=== PATIENT | female | born 1970 | race Caucasian/White ===

== ENCOUNTER 2016-12-30 11:50 | Emergency (ER) | payer BC ==
--- NOTE | 2016-12-30 12:06 | EDM.PDOC ---
ED HPI GENERAL MEDICAL PROBLEM - General Chief Complaint: Abdominal Pain Stated Complaint: ACUTE PANCREATICE ATTACK Time Seen by Provider: 12/30/16 11:58 - History of Present Illness INITIAL COMMENTS - FREE TEXT/NARRATIVE: 46 yo female presents with acute upper abdominal pain. States that she has a hx of pancreatitis and tomorrow she is going to [facility] for a ERCP and stent placement. States that pain began Saturday, admits to having beer on . Has been taking tylenol with no relief. Denies n/v/d. Pt refusing IV fluids. States that she usually just get blood work and has pain medication she takes to help. Onset Date: 12/28/16 Duration: Constant Location: Reports: Abdomen Quality: Reports: Ache, Burning, Same as Previous Episode Severity: Moderate Improves with: Reports: None Worsens with: Reports: None Associated Symptoms: Reports: No Other Symptoms Treatments YARD PILOT: Reports: Acetaminophen Left Lower Abdomen Pain Score (Numeric/FACES): 8 - Related Data Allergies Allergy/AdvReac Type Severity Reaction Status Date / Time No Known Allergies Allergy Verified 12/30/16 12:07 Home Meds: Home Meds Omeprazole 20 mg PO DAILY 12/30/16 [History] Social & Family History - Tobacco Use Smoking Status *Q: Current Every Day Smoker Years of Tobacco use: 1 Used Tobacco, but Quit: No Second Hand Smoke Exposure: No - Alcohol Use Days Per Week of Alcohol Use: 1 Number of Drinks Per Day: 2 Total Drinks Per Week: 2 - Recreational Drug Use Recreational Drug Use: No ED ROS GENERAL - Review of Systems Review Of Systems: ROS reveals no pertinent complaints other than HPI. ED EXAM, GI/ABD - Physical Exam Exam: See Below Exam Limited By: No Limitations General Appearance: Alert, WD/WN, No Apparent Distress Respiratory/Chest: No Respiratory Distress, Lungs Clear, Normal Breath Sounds, No Accessory Muscle Use, Chest Non-Tender Cardiovascular: Normal Peripheral Pulses, Regular Rate, Rhythm, No Edema, No Gallop, No JVD, No Murmur, No Rub GI/Abdominal Exam: Normal Bowel Sounds, Soft, No Organomegaly, No Distention, No Abnormal Bruit, No Mass, Tender (Epigastric area) Back Exam: Normal Inspection, Full Range of Motion, NT Neurological: Alert, Oriented Skin Exam: Warm, Dry, Intact, Normal Color, No Rash Course - Vital Signs Last Recorded V/S: Last Vital Signs Temp 97.6 F 12/30/16 12:02 Pulse 95 12/30/16 12:02 Resp 20 12/30/16 12:02 BP 176/78 H 12/30/16 12:02 Pulse Ox 95 12/30/16 12:02 - Orders/Labs/Meds Labs: Laboratory Tests 12/30/16 12/30/16 Range/Units 12:23 12:23 WBC 8.0 (5.0-10.0) 10^3/uL RBC 4.33 (4.2-5.4) 10^6/uL Hgb 14.5 (12.0-16.0) g/dL Hct 42.5 (37.0-47.0) % MCV 98.2 (80-100) fL MCH 33.5 (27.0-34.0) pg MCHC 34.1 (33.0-35.0) g/dL Plt Count 286 (150-450) 10^3/uL Neut % (Auto) 66.0 (42.2-75.2) % Lymph % (Auto) 25.8 (20.5-50.1) % [place] % (Auto) 5.0 (2-8) % Eos % (Auto) 2.8 (1.0-3.0) % Baso % (Auto) 0.4 (0.0-1.0) % Sodium 140 (135-145) mmol/L Potassium 4.7 (3.6-5.0) mmol/L Chloride 103 (101-111) mmol/L Carbon Dioxide 26.0 (21.0-31.0) mmol/L Anion Gap 15.7 BUN 9 (7-18) mg/dL Creatinine 0.8 (0.6-1.3) mg/dL Est Cr Clr Drug Dosing 79.07 mL/min Estimated GFR (MDRD) > 60 BUN/Creatinine Ratio 11.25 Glucose 108 H (74-105) mg/dL Calcium 9.4 (8.4-10.2) mg/dl Total Bilirubin 0.9 (0.2-1.0) mg/dL AST 16 (10-42) IU/L ALT 10 (10-60) IU/L Alkaline Phosphatase 47 (42-121) IU/L Total Protein 7.5 (6.7-8.2) g/dl Albumin 4.1 (3.2-5.5) g/dl Globulin 3.4 Albumin/Globulin Ratio 1.21 Amylase 126 H (28-100) U/L Lipase 123 H (22-51) U/L Meds: Medications Discontinued Medications Generic Name Dose Route Start Last Admin Trade Name Zack PRN Reason Stop Dose Admin Hydrocodone Bitart/Acetaminophen 1 tab 12/30/16 13:01 12/30/16 13:07 [place] 325-10 Mg PO 12/30/16 13:02 1 tab ONETIME ONE Administration Ondansetron HCl 4 mg 12/30/16 13:01 12/30/16 13:07 Zofran Odt PO 12/30/16 13:02 4 mg ONETIME ONE Administration - Re-Assessments/Exams Free Text/Narrative Re-Assessment/Exam: 12/30/16 13:11 Lab work reveal mild pancreatitis. Will medicate and have patient follow up in am with her PCP for her surgery. Departure - Departure Time of Disposition: 13:12 Disposition: Home, Self-Care 01 Condition: Good Clinical Impression: Pancreatitis Qualifiers: Chronicity: acute Pancreatitis type: alcohol induced Acute pancreatitis complication: no infection or necrosis Qualified Code(s): K85.20 - Alcohol induced acute pancreatitis without necrosis or infection - Discharge Information Instructions: Acute Pancreatitis Forms: ED Department Discharge Additional Instructions: Make sure you follow up to[facility] with your PCP/time study engineer for evaluation for your surgery. Take the medication as needed. Return for worsening symptoms. Care Plan Goals: hydrocodone/Tylenol 10/325 #8
[2016-12-30 12:07] VITALS: BP 176/78
[2016-12-30 12:52] LABS: CHLORIDE,CL 103 mmol/L (101-111); SODIUM,NA 140 mmol/L (135-145)
[2016-12-30] MEDS ORDERED: Acetaminophen/HYDROcodone 325-10 MG Tab PO ONE (13:01)
[2016-12-30] MEDS ORDERED: Ondansetron 4 MG Tab.DIS PO ONE (13:01)
== END 2016-12-30 13:26 | disposition home or self-care (01) ==
LOC: DL.ED 11:50
DX: K85.20 Alcohol induced acute pancreatitis without necrosis or infection (principal); F17.210 Nicotine dependence, cigarettes, uncomplicated; Z79.899 Other long term (current) drug therapy
CPT/HCPCS: 36415; 80053; 82150; 83690; 85025; 99284; A9270

== ENCOUNTER 2018-05-28 17:35 | Inpatient (IN) | payer BC ==
--- NOTE | 2018-05-28 18:14 | EDM.PDOC ---
<Gabi Johnson - Last Filed: 05/28/18 18:59> ED HPI GENERAL MEDICAL PROBLEM - General Chief Complaint: Abdominal Pain Stated Complaint: SEVER ABDOMEN PAIN Time Seen by Provider: 05/28/18 18:00 Source of Information: Reports: Patient History Limitations: Reports: No Limitations - History of Present Illness INITIAL COMMENTS - FREE TEXT/NARRATIVE: Patient is 47 year old female who presents to ER with abdominal pain for past 2 days. Patient reports that pain starts in her umbilical region and goes all the way up to her chest, back, and left armpit. Rates her pain 10/10. Describes her pain as sharp and constant. No alleviating factors. No exacerbating factors. She has taken tylenol with no help. Other symptoms include nausea, vomiting, decreased appetite, and chills. Has history of acid reflux and is currently taking prilosec. Patient has history of chronic pancreatitis and doesn't feel like this is pancreatitis. She has not had any pancreatitis episode after she had stents placed at [facility] in March 2017. Admits to alcohol use a day prior to pain starting. Tobacco use. Patient also reports of marijuana use today to help with pain. Onset: Gradual Duration: Day(s): (2) Location: Reports: Chest, Abdomen Quality: Reports: Sharp Severity: Moderate Improves with: Reports: None Worsens with: Reports: Breathing Associated Symptoms: Reports: Fever/Chills, Loss of Appetite, Nausea/Vomiting Treatments HEARING THERAPIST: Reports: Acetaminophen, Other (see below) (Prilosec) Abdominal Pain Score (Numeric/FACES): 8 - Related Data Allergies Allergy/AdvReac Type Severity Reaction Status Date / Time No Known Allergies Allergy Verified 05/28/18 18:29 Home Meds: Home Meds Omeprazole 20 mg PO DAILY 12/30/16 [History] Lipase/Protease/Amylase [Travis Saavedra 36,000 Units Capsule] 2 tab PO TID 05/28/18 [ History] Past Medical History Gastrointestinal History: Reports: GERD, Pancreatitis 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 ED ROS GENERAL - Review of Systems Review Of Systems: ROS reveals no pertinent complaints other than HPI. ED EXAM, GI/ABD - Physical Exam Exam: See Below Exam Limited By: No Limitations General Appearance: Alert, Mild Distress Eyes: Bilateral: Normal Appearance Ears: Normal External Exam Nose: Normal Inspection Throat/Mouth: Normal Inspection Head: Atraumatic Neck: Normal Inspection Respiratory/Chest: No Respiratory Distress, Lungs Clear, Normal Breath Sounds Cardiovascular: Regular Rate, Rhythm, No Edema GI/Abdominal Exam: Normal Bowel Sounds, Soft, Tender (diffuse tenderness). No: Distended, Guarding, Rigid, Rebound (Female) Exam: Deferred Rectal (Female) Exam: Deferred Back Exam: Normal Inspection Extremities: Normal Inspection Neurological: Alert, Oriented Psychiatric: Normal Affect, Normal Mood Skin Exam: Warm, Dry Course - Vital Signs Last Recorded V/S: Last Vital Signs Temp 99.9 F 05/28/18 21:50 Pulse 97 05/28/18 21:50 Resp 20 05/28/18 21:50 BP 137/65 05/28/18 21:50 Pulse Ox 92 L 05/28/18 21:50 - Orders/Labs/Meds Orders: Active Orders 24 hr Category Date Time Status EKG Documentation Completion [RC] URGENT Care 05/28/18 18:30 Active CULTURE BLOOD [BC] Stat Lab 05/28/18 18:44 Received CULTURE BLOOD [BC] Stat Lab 05/28/18 18:48 Received Lactated Ringers [Ringers, Lactated] 1,000 ml Med 05/28/18 18:45 Active IV ASDIRECTED Blood Culture x2 Reflex Set [OM.PC] Stat Oth 05/28/18 18:40 Ordered Medication Orders Bisacodyl (Dulcolax) 5 mg PO DAILY PRN PRN Reason: Constipation Docusate Sodium (Colace) 100 mg PO BID PRN PRN Reason: Constipation Fentanyl (Sublimaze) 25 mcg IVPUSH Q3H PRN PRN Reason: Abdominal Pain Heparin Sodium (Porcine) (Heparin Sodium) 5,000 units SUBCUT Q8HR LEONCIO Lactated Ringer's (Ringers, Lactated) 1,000 mls @ 125 mls/hr IV ASDIRECTED LEONCIO Last Admin: 05/28/18 19:00 Dose: 125 mls/hr Lactated Ringer's (Ringers, Lactated) 1,000 mls @ 250 mls/hr IV ASDIRECTED [facility] Nicotine (Habitrol) 21 mg TRDERM DAILY [facility] Ondansetron HCl (Zofran) 4 mg IVPUSH Q4H PRN PRN Reason: Nausea/Vomiting Pantoprazole Sodium (Protonix Iv) 40 mg IVPUSH DAILY [facility] Polyethylene Glycol (Miralax) 17 gm PO DAILY PRN PRN Reason: Constipation Promethazine HCl (Phenergan) 6.25 mg IM Q6H PRN PRN Reason: Nausea/Vomiting Senna/Docusate Sodium (Senna Plus) 1 tab PO BEDTIME PRN PRN Reason: Constipation Labs: Laboratory Tests 05/28/18 05/28/18 05/28/18 Range/Units 18:20 18:20 18:20 WBC 15.5 H (5.0-10.0) 10^3/uL RBC 4.20 (4.2-5.4) 10^6/uL Hgb 14.1 (12.0-16.0) g/dL Hct 40.1 (37.0-47.0) % MCV 95.5 (80-100) fL MCH 33.6 (27.0-34.0) pg MCHC 35.2 H (33.0-35.0) g/dL Plt Count 302 (150-450) 10^3/uL Neut % (Auto) 89.7 H (42.2-75.2) % Lymph % (Auto) 4.4 L (20.5-50.1) % [place] % (Auto) 5.7 (2-8) % Eos % (Auto) 0.1 L (1.0-3.0) % Baso % (Auto) 0.1 (0.0-1.0) % Sodium 126 L D (135-145) mmol/L Potassium 4.1 (3.6-5.0) mmol/L Chloride 90 L D (101-111) mmol/L Carbon Dioxide 20.0 L (21.0-31.0) mmol/L Anion Gap 20.1 BUN 8 (7-18) mg/dL Creatinine 0.7 (0.6-1.3) mg/dL Est Cr Clr Drug Dosing 89.40 mL/min Estimated GFR (MDRD) > 60 BUN/Creatinine Ratio 11.42 Glucose 109 H (74-105) mg/dL Lactic Acid (0.5-2.2) mmol/L Calcium 8.8 (8.4-10.2) mg/dl Magnesium 1.6 L (1.8-2.5) mg/dL Total Bilirubin 1.2 H (0.2-1.0) mg/dL AST 15 (10-42) IU/L ALT 8 L (10-60) IU/L Alkaline Phosphatase 66 (42-121) IU/L Ammonia (11-35) umol/L Troponin I < 0.02 (0.00-0.02) ng/ml Total Protein 8.0 (6.7-8.2) g/dl Albumin 4.0 (3.2-5.5) g/dl Globulin 4.0 Albumin/Globulin Ratio 1.00 Amylase 107 H (28-100) U/L Lipase 105 H (22-51) U/L Urine Color (YELLOW) Urine Appearance (CLEAR) Urine pH (5.0-9.0) Ur Specific [place] (1.005-1.030) Urine Protein (NEGATIVE) Urine Glucose (UA) (NEGATIVE) Urine Ketones (NEGATIVE) Urine Occult Blood (NEGATIVE) Urine Nitrite (NEGATIVE) Urine Bilirubin (NEGATIVE) Urine Urobilinogen (0.2-1.0) mg/dL Ur Leukocyte Esterase (NEGATIVE) Urine RBC /HPF Urine WBC (0-5/HPF) /HPF Ur Epithelial Cells /HPF Urine Bacteria (0-FEW/HPF) /HPF Urine Mucus /LPF Urinalysis Comment Urine HCG, Qual 05/28/18 05/28/18 05/28/18 Range/Units 18:44 18:44 20:12 WBC (5.0-10.0) 10^3/uL RBC (4.2-5.4) 10^6/uL Hgb (12.0-16.0) g/dL Hct (37.0-47.0) % MCV (80-100) fL MCH (27.0-34.0) pg MCHC (33.0-35.0) g/dL Plt Count (150-450) 10^3/uL Neut % (Auto) (42.2-75.2) % Lymph % (Auto) (20.5-50.1) % [place] % (Auto) (2-8) % Eos % (Auto) (1.0-3.0) % Baso % (Auto) (0.0-1.0) % Sodium (135-145) mmol/L Potassium (3.6-5.0) mmol/L Chloride (101-111) mmol/L Carbon Dioxide (21.0-31.0) mmol/L Anion Gap BUN (7-18) mg/dL Creatinine (0.6-1.3) mg/dL Est Cr Clr Drug Dosing mL/min Estimated GFR (MDRD) BUN/Creatinine Ratio Glucose (74-105) mg/dL Lactic Acid 1.0 (0.5-2.2) mmol/L Calcium (8.4-10.2) mg/dl Magnesium (1.8-2.5) mg/dL Total Bilirubin (0.2-1.0) mg/dL AST (10-42) IU/L ALT (10-60) IU/L Alkaline Phosphatase (42-121) IU/L Ammonia 17 (11-35) umol/L Troponin I (0.00-0.02) ng/ml Total Protein (6.7-8.2) g/dl Albumin (3.2-5.5) g/dl Globulin Albumin/Globulin Ratio Amylase (28-100) U/L Lipase (22-51) U/L Urine Color Yellow (YELLOW) Urine Appearance Slightly cloudy (CLEAR) Urine pH 6.0 (5.0-9.0) Ur Specific [place] >= 1.030 (1.005-1.030) Urine Protein 30 H (NEGATIVE) Urine Glucose (UA) Negative (NEGATIVE) Urine Ketones 80 H (NEGATIVE) Urine Occult Blood Moderate H (NEGATIVE) Urine Nitrite Negative (NEGATIVE) Urine Bilirubin Small H (NEGATIVE) Urine Urobilinogen 0.2 (0.2-1.0) mg/dL Ur Leukocyte Esterase Negative (NEGATIVE) Urine RBC 20-30 H /HPF Urine WBC 0-5 (0-5/HPF) /HPF Ur Epithelial Cells Moderate H /HPF Urine Bacteria Many H (0-FEW/HPF) /HPF Urine Mucus Many H /LPF Urinalysis Comment Urine HCG, Qual 05/28/18 Range/Units 20:12 WBC (5.0-10.0) 10^3/uL RBC (4.2-5.4) 10^6/uL Hgb (12.0-16.0) g/dL Hct (37.0-47.0) % MCV (80-100) fL MCH (27.0-34.0) pg MCHC (33.0-35.0) g/dL Plt Count (150-450) 10^3/uL Neut % (Auto) (42.2-75.2) % Lymph % (Auto) (20.5-50.1) % [place] % (Auto) (2-8) % Eos % (Auto) (1.0-3.0) % Baso % (Auto) (0.0-1.0) % Sodium (135-145) mmol/L Potassium (3.6-5.0) mmol/L Chloride (101-111) mmol/L Carbon Dioxide (21.0-31.0) mmol/L Anion Gap BUN (7-18) mg/dL Creatinine (0.6-1.3) mg/dL Est Cr Clr Drug Dosing mL/min Estimated GFR (MDRD) BUN/Creatinine Ratio Glucose (74-105) mg/dL Lactic Acid (0.5-2.2) mmol/L Calcium (8.4-10.2) mg/dl Magnesium (1.8-2.5) mg/dL Total Bilirubin (0.2-1.0) mg/dL AST (10-42) IU/L ALT (10-60) IU/L Alkaline Phosphatase (42-121) IU/L Ammonia (11-35) umol/L Troponin I (0.00-0.02) ng/ml Total Protein (6.7-8.2) g/dl Albumin (3.2-5.5) g/dl Globulin Albumin/Globulin Ratio Amylase (28-100) U/L Lipase (22-51) U/L Urine Color (YELLOW) Urine Appearance (CLEAR) Urine pH (5.0-9.0) Ur Specific [place] (1.005-1.030) Urine Protein (NEGATIVE) Urine Glucose (UA) (NEGATIVE) Urine Ketones (NEGATIVE) Urine Occult Blood (NEGATIVE) Urine Nitrite (NEGATIVE) Urine Bilirubin (NEGATIVE) Urine Urobilinogen (0.2-1.0) mg/dL Ur Leukocyte Esterase (NEGATIVE) Urine RBC /HPF Urine WBC (0-5/HPF) /HPF Ur Epithelial Cells /HPF Urine Bacteria (0-FEW/HPF) /HPF Urine Mucus /LPF Urinalysis Comment Urine HCG, Qual Negative Meds: Medications Generic Name Dose Route Start Last Admin Trade Name Zack PRN Reason Stop Dose Admin Bisacodyl 5 mg 05/28/18 21:50 Dulcolax PO DAILY PRN Constipation Docusate Sodium 100 mg 05/28/18 21:50 Colace PO BID PRN Constipation Fentanyl 25 mcg 05/28/18 22:00 Sublimaze IVPUSH Q3H PRN Abdominal Pain Heparin Sodium (Porcine) 5,000 units 05/28/18 22:00 Heparin Sodium SUBCUT Q8HR LEONCIO Lactated Ringer's 1,000 mls @ 125 mls/hr 05/28/18 18:45 05/28/18 19:00 Ringers, Lactated IV 125 mls/hr ASDIRECTED LEONCIO Administration Lactated Ringer's 1,000 mls @ 250 mls/hr 05/28/18 22:00 Ringers, Lactated IV ASDIRECTED LEON[facility] Nicotine 21 mg 05/28/18 22:00 Habitrol TRDERM DAILY [facility] Ondansetron HCl 4 mg 05/28/18 21:50 Zofran IVPUSH Q4H PRN Nausea/Vomiting Pantoprazole Sodium 40 mg 05/29/18 09:00 Protonix Iv IVPUSH DAILY [facility] Polyethylene Glycol 17 gm 05/28/18 21:50 Miralax PO DAILY PRN Constipation Promethazine HCl 6.25 mg 05/28/18 21:50 Phenergan IM Q6H PRN Nausea/Vomiting Senna/Docusate Sodium 1 tab 05/28/18 21:50 Senna Plus PO BEDTIME PRN Constipation Discontinued Medications Generic Name Dose Route Start Last Admin Trade Name Zack PRN Reason Stop Dose Admin Hydromorphone HCl 1 mg 05/28/18 21:13 05/28/18 21:31 Dilaudid IVPUSH 05/28/18 21:14 1 mg ONETIME ONE Administration Iopamidol 75 ml 05/28/18 21:14 Isovue-300 (61%) IVPUSH 05/28/18 21:15 ONETIME ONE Promethazine HCl 25 mg 05/28/18 18:16 05/28/18 18:51 Phenergan IM 05/28/18 18:17 25 mg ONETIME ONE Administration Departure - Departure Disposition: Admitted As Inpatient 66 Clinical Impression: Pancreatitis - Discharge Information <Cha Salas - Last Filed: 05/28/18 22:08> EKG INTERPRETATION EKG Date: 05/28/18 Time: 18:52 Rhythm: NSR Rate (Beats/Min): 79 [place]: Normal P-Wave: Present QRS: Normal ST-T: Normal QT: Normal Comparison: No Change Course - Radiology Interpretation Free Text/Narrative:: Abdomen/Plevis CT with contrast: FINDINGS: Lower thorax: Unremarkable. ABDOMEN: Liver: No suspicious lesions. Gallbladder and bile ducts: No acute or concerning findings. Pancreas: Peripancreatic edema. Punctate calcifications throughout the pancreas. Spleen: No suspicious lesions. Adrenals: Unremarkalbe. No suspicious mass. Kidneys and ureters: Unremarkable. No hydro. No suspicious lesions. Stomach and bowel: Unremarkable. No obstruction or inflammatory changes. Appendix: No evidence of appendicitis. PELVIS: Bladder: Unremarkable as visualized. Reproductive: Unremarkable as visualized. ABDOMEN and PELVIS: Intraperitoneal space: No free air. No significant fluid collection. Bones/joints: No acute fracture. No dislocation. Soft tissues: Unremarkable. Vasculature: Unremarkable. No acute findings Lymph nodes: Unremarkable. IMPRESSION: Acute on chronic pancreatitis changes. Thank you for allowing us to participate in the care of your patient. Dictated and Authenticated by: Luis Fernando Arreaga MD 05/28/2018 9:09 PM Central Time ([place] & [place]) See rad report - Re-Assessments/Exams Free Text/Narrative Re-Assessment/Exam: 05/28/18 22:06 I saw and evaluated the patient. Discussed with resident and agree with resident s findings and plan as documented in the residents note. Discussed patient with Dr. Farmer who agreed to accept the patient for inpatient admission. Departure - Departure Time of Disposition: 21:28 Condition: Fair - Discharge Information *PRESCRIPTION DRUG MONITORING PROGRAM REVIEWED*: No *COPY OF PRESCRIPTION DRUG MONITORING REPORT IN PATIENT [place]: No
[2018-05-28] MEDS ORDERED: Promethazine 25 MG/ML SDV IM ONE (18:16)
[2018-05-28] MEDS ORDERED: Lactated Ringers 1,000 ML IV SCH (18:45)
[2018-05-28 18:51] LABS: ANION GAP 20.1; CHLORIDE,CL 90 mmol/L (101-111); SODIUM,NA 126 mmol/L (135-145)
[2018-05-28] MEDS ORDERED: HYDROmorphone 1 MG/ML Syringe IVPUSH ONE (21:13)
[2018-05-28] MEDS ORDERED: Iopamidol 612 MG/ML 75 ML Bottle IVPUSH ONE (21:14)
[2018-05-28] MEDS ORDERED: Bisacodyl 5 MG Tab PO PRN (21:50)
[2018-05-28] MEDS ORDERED: Docusate Sodium 100 MG Cap PO PRN (21:50)
[2018-05-28] MEDS ORDERED: Promethazine 25 MG/ML SDV IM PRN (21:50)
[2018-05-28] MEDS ORDERED: Polyethylene Glycol 3350 Powder 17 GM Packet PO PRN (21:50)
--- NOTE | 2018-05-28 22:10 | PCM.HP ---
H&P History of Present Illness - General Date of Service: 05/28/18 Admit Problem/Dx: Admission Diagnosis/Problem Admission Diagnosis/Problem Acute pancreatitis Source of Information: Patient, Family, Provider History Limitations: Reports: No Limitations - History of Present Illness Initial Comments - Free Text/Narative: Ms. Marquez is a 47 y .o female with medical history significant for recurrent pancreatitis s/p multiple ERCPs and stent placements, tobacco use disorder, who presented to the ED with complaints of 8/10, sharp, constant abdominal pain that started on Saturday evening and has radiated to the epigastric area and left shoulder. Pain is associated with nausea with bilious emesis. She reports drinking 3 beers on Saturday night. States she smokes a pack of cigarettes daily. Started smoking marijuana but has not been smoking a lot. Denies any other illicit drug use. She reports that pain started on Saturday evening. She was able to manage to go to work but tonight, pain was so bad she had to come to the ED. She reports chills but had not checked her temperature at home. Denies abdominal trauama, scorpion bites, new medications, shortness of breath. She denies dysuria, hematuria, diarrhea, or constipation. Denies any other acute symptoms. Wants to quit smoking. 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 Social & Family History - Tobacco Use Smoking Status *Q: Current Every Day Smoker Years of Tobacco use: 30 Packs/Tins Daily: 1 - Caffeine Use Caffeine Use: Reports: Soda - Recreational Drug Use Recreational Drug Use: Yes Drug Use in Last 12 Months: Yes Recreational Drug Type: Reports: Marijuana/Hashish H&P Review of Systems - Review of Systems: Review Of Systems: ROS reveals no pertinent complaints other than HPI. Exam - Exam Exam: See Below - Vital Signs Vital Signs: Last Vital Signs Temp 99.9 F 05/28/18 21:50 Pulse 97 05/28/18 21:50 Resp 20 05/28/18 21:50 BP 137/65 05/28/18 21:50 Pulse Ox 92 L 05/28/18 21:50 Weight: 146 lb 8 oz - Exam Physical Exam Comments:: General: Alert and oriented to place, time and person, in moderate to severe distress, shivering. Head: atraumatic and normocephalic. Eyes: PERRLA, EOMI, anicteric, Ear, Nose and Throat: No gross abnormality found Neck: Supple Respiratory/Chest: CTAB, no wheezes, crackles, rales, or rhonci; Good air entry bilaterally. No increased work of breathing CVS: Tachycardic, RR, no murmur, rub, or gallop, peripheral pulses palpable. Gastrointestinal/Abd: Soft, non-distended, diffuse tenderness without guarding or rebound. Normal bowel sounds. No organomegaly. Skin: No acute rashes noted. Neuro: Grossly non-focal. No cranial nerve abnormality. Moves all extremities. Psych: Alert and oriented to place time and person. Fair insight, normal mood, congruent affect. Musculoskeletal: No abnormality noted. Ext: No edema, no ulcers, no tenderness, no size differences, - Patient Data Lab Results Last 24 hrs: Laboratory Results - last 24 hr 05/28/18 05/28/18 05/28/18 Range/Units 18:20 18:20 18:20 WBC 15.5 H (5.0-10.0) 10^3/uL RBC 4.20 (4.2-5.4) 10^6/uL Hgb 14.1 (12.0-16.0) g/dL Hct 40.1 (37.0-47.0) % MCV 95.5 (80-100) fL MCH 33.6 (27.0-34.0) pg MCHC 35.2 H (33.0-35.0) g/dL Plt Count 302 (150-450) 10^3/uL Neut % (Auto) 89.7 H (42.2-75.2) % Lymph % (Auto) 4.4 L (20.5-50.1) % [place] % (Auto) 5.7 (2-8) % Eos % (Auto) 0.1 L (1.0-3.0) % Baso % (Auto) 0.1 (0.0-1.0) % Sodium 126 L D (135-145) mmol/L Potassium 4.1 (3.6-5.0) mmol/L Chloride 90 L D (101-111) mmol/L Carbon Dioxide 20.0 L (21.0-31.0) mmol/L Anion Gap 20.1 BUN 8 (7-18) mg/dL Creatinine 0.7 (0.6-1.3) mg/dL Est Cr Clr Drug Dosing 89.40 mL/min Estimated GFR (MDRD) > 60 BUN/Creatinine Ratio 11.42 Glucose 109 H (74-105) mg/dL Lactic Acid (0.5-2.2) mmol/L Calcium 8.8 (8.4-10.2) mg/dl Magnesium 1.6 L (1.8-2.5) mg/dL Total Bilirubin 1.2 H (0.2-1.0) mg/dL AST 15 (10-42) IU/L ALT 8 L (10-60) IU/L Alkaline Phosphatase 66 (42-121) IU/L Ammonia (11-35) umol/L Troponin I < 0.02 (0.00-0.02) ng/ml Total Protein 8.0 (6.7-8.2) g/dl Albumin 4.0 (3.2-5.5) g/dl Globulin 4.0 Albumin/Globulin Ratio 1.00 Amylase 107 H (28-100) U/L Lipase 105 H (22-51) U/L Urine Color (YELLOW) Urine Appearance (CLEAR) Urine pH (5.0-9.0) Ur Specific Robson (1.005-1.030) Urine Protein (NEGATIVE) Urine Glucose (UA) (NEGATIVE) Urine Ketones (NEGATIVE) Urine Occult Blood (NEGATIVE) Urine Nitrite (NEGATIVE) Urine Bilirubin (NEGATIVE) Urine Urobilinogen (0.2-1.0) mg/dL Ur Leukocyte Esterase (NEGATIVE) Urine RBC /HPF Urine WBC (0-5/HPF) /HPF Ur Epithelial Cells /HPF Urine Bacteria (0-FEW/HPF) /HPF Urine Mucus /LPF Urinalysis Comment Urine HCG, Qual 05/28/18 05/28/18 05/28/18 Range/Units 18:44 18:44 20:12 WBC (5.0-10.0) 10^3/uL RBC (4.2-5.4) 10^6/uL Hgb (12.0-16.0) g/dL Hct (37.0-47.0) % MCV (80-100) fL MCH (27.0-34.0) pg MCHC (33.0-35.0) g/dL Plt Count (150-450) 10^3/uL Neut % (Auto) (42.2-75.2) % Lymph % (Auto) (20.5-50.1) % [place] % (Auto) (2-8) % Eos % (Auto) (1.0-3.0) % Baso % (Auto) (0.0-1.0) % Sodium (135-145) mmol/L Potassium (3.6-5.0) mmol/L Chloride (101-111) mmol/L Carbon Dioxide (21.0-31.0) mmol/L Anion Gap BUN (7-18) mg/dL Creatinine (0.6-1.3) mg/dL Est Cr Clr Drug Dosing mL/min Estimated GFR (MDRD) BUN/Creatinine Ratio Glucose (74-105) mg/dL Lactic Acid 1.0 (0.5-2.2) mmol/L Calcium (8.4-10.2) mg/dl Magnesium (1.8-2.5) mg/dL Total Bilirubin (0.2-1.0) mg/dL AST (10-42) IU/L ALT (10-60) IU/L Alkaline Phosphatase (42-121) IU/L Ammonia 17 (11-35) umol/L Troponin I (0.00-0.02) ng/ml Total Protein (6.7-8.2) g/dl Albumin (3.2-5.5) g/dl Globulin Albumin/Globulin Ratio Amylase (28-100) U/L Lipase (22-51) U/L Urine Color Yellow (YELLOW) Urine Appearance Slightly cloudy (CLEAR) Urine pH 6.0 (5.0-9.0) Ur Specific Robson >= 1.030 (1.005-1.030) Urine Protein 30 H (NEGATIVE) Urine Glucose (UA) Negative (NEGATIVE) Urine Ketones 80 H (NEGATIVE) Urine Occult Blood Moderate H (NEGATIVE) Urine Nitrite Negative (NEGATIVE) Urine Bilirubin Small H (NEGATIVE) Urine Urobilinogen 0.2 (0.2-1.0) mg/dL Ur Leukocyte Esterase Negative (NEGATIVE) Urine RBC 20-30 H /HPF Urine WBC 0-5 (0-5/HPF) /HPF Ur Epithelial Cells Moderate H /HPF Urine Bacteria Many H (0-FEW/HPF) /HPF Urine Mucus Many H /LPF Urinalysis Comment Urine HCG, Qual 05/28/18 Range/Units 20:12 WBC (5.0-10.0) 10^3/uL RBC (4.2-5.4) 10^6/uL Hgb (12.0-16.0) g/dL Hct (37.0-47.0) % MCV (80-100) fL MCH (27.0-34.0) pg MCHC (33.0-35.0) g/dL Plt Count (150-450) 10^3/uL Neut % (Auto) (42.2-75.2) % Lymph % (Auto) (20.5-50.1) % [place] % (Auto) (2-8) % Eos % (Auto) (1.0-3.0) % Baso % (Auto) (0.0-1.0) % Sodium (135-145) mmol/L Potassium (3.6-5.0) mmol/L Chloride (101-111) mmol/L Carbon Dioxide (21.0-31.0) mmol/L Anion Gap BUN (7-18) mg/dL Creatinine (0.6-1.3) mg/dL Est Cr Clr Drug Dosing mL/min Estimated GFR (MDRD) BUN/Creatinine Ratio Glucose (74-105) mg/dL Lactic Acid (0.5-2.2) mmol/L Calcium (8.4-10.2) mg/dl Magnesium (1.8-2.5) mg/dL Total Bilirubin (0.2-1.0) mg/dL AST (10-42) IU/L ALT (10-60) IU/L Alkaline Phosphatase (42-121) IU/L Ammonia (11-35) umol/L Troponin I (0.00-0.02) ng/ml Total Protein (6.7-8.2) g/dl Albumin (3.2-5.5) g/dl Globulin Albumin/Globulin Ratio Amylase (28-100) U/L Lipase (22-51) U/L Urine Color (YELLOW) Urine Appearance (CLEAR) Urine pH (5.0-9.0) Ur Specific Robson (1.005-1.030) Urine Protein (NEGATIVE) Urine Glucose (UA) (NEGATIVE) Urine Ketones (NEGATIVE) Urine Occult Blood (NEGATIVE) Urine Nitrite (NEGATIVE) Urine Bilirubin (NEGATIVE) Urine Urobilinogen (0.2-1.0) mg/dL Ur Leukocyte Esterase (NEGATIVE) Urine RBC /HPF Urine WBC (0-5/HPF) /HPF Ur Epithelial Cells /HPF Urine Bacteria (0-FEW/HPF) /HPF Urine Mucus /LPF Urinalysis Comment Urine HCG, Qual Negative Result Diagrams: 05/28/18 22:05 05/28/18 22:05 - Problem List (1) Hyponatremia SNOMED Code(s): 50830155 ICD Code: E87.1 - HYPO-OSMOLALITY AND HYPONATREMIA Status: Acute Current Visit: Yes (2) SIRS (systemic inflammatory response syndrome) SNOMED Code(s): 364111924 ICD Code: R65.10 - SIRS OF NON-INFECTIOUS ORIGIN W/O ACUTE ORGAN DYSFUNCTION Status: Acute Current Visit: Yes (3) Tobacco use disorder SNOMED Code(s): 572048920 ICD Code: F17.200 - NICOTINE DEPENDENCE, UNSPECIFIED, UNCOMPLICATED Status : Acute Current Visit: Yes (4) Alcohol abuse SNOMED Code(s): 26837528 ICD Code: F10.10 - ALCOHOL ABUSE, UNCOMPLICATED Status: Acute Current Visit: Yes (5) Marijuana abuse SNOMED Code(s): 43100219 ICD Code: F12.10 - CANNABIS ABUSE, UNCOMPLICATED Status: Acute Current Visit: Yes (6) High anion gap metabolic acidosis SNOMED Code(s): 84461990 ICD Code: E87.2 - ACIDOSIS Status: Acute Current Visit: Yes (7) Hypomagnesemia SNOMED Code(s): 083324566 ICD Code: E83.42 - HYPOMAGNESEMIA Status: Acute Current Visit: Yes (8) Pancreatitis SNOMED Code(s): 41023350 ICD Code: K85.9 - ACUTE PANCREATITIS, UNSPECIFIED * DO NOT USE * Status: Acute Current Visit: No Problem List Initiated/Reviewed/Updated: Yes Orders Last 24hrs: Active Orders 24 hr Category Date Time Status Patient Status [ADT] Routine ADT 05/28/18 21:50 Ordered Cardiac Monitoring [RC] CONTINUOUS Care 05/28/18 21:51 Ordered EKG Documentation Completion [RC] URGENT Care 05/28/18 18:30 Active Intake and Output [RC] QSHIFT Care 05/28/18 21:51 Ordered Oxygen Therapy [RC] PRN Care 05/28/18 21:50 Ordered Up ad Rosina [RC] ASDIRECTED Care 05/28/18 21:50 Ordered VTE/DVT Education [RC] PER UNIT ROUTINE Care 05/28/18 21:50 Ordered Vital Signs [RC] Q4H Care 05/28/18 21:50 Ordered Nothing per Oral Now Diet [DIET] Diet 05/28/18 Dinner Ordered BASIC METABOLIC PANEL,BMP [CHEM] DAILY Lab 05/28/18 22:00 Ordered CBC W/O DIFF,HEMOGRAM [HEME] DAILY Lab 05/28/18 22:00 Ordered CULTURE BLOOD [BC] Stat Lab 05/28/18 18:44 Received CULTURE BLOOD [BC] Stat Lab 05/28/18 18:48 Received Bisacodyl [Dulcolax] Med 05/28/18 21:50 Ordered 5 mg PO DAILY PRN Docusate Sodium [Colace] Med 05/28/18 21:50 Ordered 100 mg PO BID PRN Docusate Sodium/Sennosides [Senna Plus] Med 05/28/18 21:50 Ordered 1 tab PO BEDTIME PRN Heparin Sodium Med 05/28/18 22:00 Ordered 5,000 units SUBCUT Q8HR Lactated Ringers [Ringers, Lactated] 1,000 ml Med 05/28/18 18:45 Active IV ASDIRECTED Lactated Ringers [Ringers, Lactated] 1,000 ml Med 05/28/18 22:00 Ordered IV ASDIRECTED Nicotine [Habitrol] Med 05/28/18 22:00 Ordered 21 mg TRDERM DAILY Ondansetron [Zofran] Med 05/28/18 21:50 Ordered 4 mg IVPUSH Q4H PRN Pantoprazole [ProTONIX IV] Med 05/29/18 09:00 Ordered 40 mg IVPUSH DAILY Polyethylene Glycol 3350 [MiraLAX] Med 05/28/18 21:50 Ordered 17 gm PO DAILY PRN Promethazine [Phenergan] Med 05/28/18 21:50 Ordered 6.25 mg IM Q6H PRN fentaNYL [Sublimaze] Med 05/28/18 22:00 Ordered 25 mcg IVPUSH Q3H PRN Blood Culture x2 Reflex Set [OM.PC] Stat Oth 05/28/18 18:40 Ordered Resuscitation Status Routine Resus Stat 05/28/18 21:50 Ordered Medication Orders Bisacodyl (Dulcolax) 5 mg PO DAILY PRN PRN Reason: Constipation Docusate Sodium (Colace) 100 mg PO BID PRN PRN Reason: Constipation Fentanyl (Sublimaze) 25 mcg IVPUSH Q3H PRN PRN Reason: Abdominal Pain Heparin Sodium (Porcine) (Heparin Sodium) 5,000 units SUBCUT Q8HR [facility] Lactated Ringer's (Ringers, Lactated) 1,000 mls @ 125 mls/hr IV ASDIRECTED [facility] Last Admin: 05/28/18 19:00 Dose: 125 mls/hr Lactated Ringer's (Ringers, Lactated) 1,000 mls @ 250 mls/hr IV ASDIRECTED [facility] Nicotine (Habitrol) 21 mg TRDERM DAILY [facility] Ondansetron HCl (Zofran) 4 mg IVPUSH Q4H PRN PRN Reason: Nausea/Vomiting Pantoprazole Sodium (Protonix Iv) 40 mg IVPUSH DAILY [facility] Polyethylene Glycol (Miralax) 17 gm PO DAILY PRN PRN Reason: Constipation Promethazine HCl (Phenergan) 6.25 mg IM Q6H PRN PRN Reason: Nausea/Vomiting Senna/Docusate Sodium (Senna Plus) 1 tab PO BEDTIME PRN PRN Reason: Constipation Assessment/Plan Comment:: #Acute recurrent pancreatitis: - NPO except ice chips - Anti-emetic protocol - LR - IV fentanyl - Smoking and alcohol cessation counseling provided # Sepsis: unspecified source. UA negative. - Obtain blood cultures. - Start on broad spectrum antibiotics - IV fluids as above # Hypomagnesemia: - IV mag sulf #Hyponatremia: mild. Likely hypovolemic. - IVF as above - Serial BMP. # Tobacco use disorder: - Wants to quit - Counseling provided - Nicotine patch. #Continue other home medications that have been ordered. Code status: DNR/DNI DVT ppx: heparin GI PPx: Protonix
[2018-05-28] MEDS: Nicotine 21 MG/24 Hr Patch TRDERM SCH (22:21)
[2018-05-28] MEDS: Lactated Ringers 1,000 ML IV SCH (22:21)
[2018-05-28] MEDS: Heparin Sodium 5,000 Units/ML Vial SUBCUT SCH (22:23)
[2018-05-28 22:31] LABS: ANION GAP 20.1; CHLORIDE,CL 90 mmol/L (101-111); SODIUM,NA 125 mmol/L (135-145)
[2018-05-29] MEDS: Piperacillin/Tazobactam 3.375 GM in Sodium Chloride 0.9% 100 ML IV SCH ×5 (00:23→23:54)
[2018-05-29] MEDS: fentaNYL 100 MCG/2 ML SDV IVPUSH PRN ×8 (01:48→23:40)
[2018-05-29] MEDS: Lactated Ringers 1,000 ML IV SCH ×4 (04:50→22:03)
[2018-05-29] MEDS: Heparin Sodium 5,000 Units/ML Vial SUBCUT SCH ×3 (06:06→23:55)
[2018-05-29 07:09] LABS: ANION GAP 14.3; CHLORIDE,CL 97 mmol/L (101-111); SODIUM,NA 130 mmol/L (135-145)
[2018-05-29] MEDS: Pantoprazole 40 MG Vial IVPUSH SCH (09:14)
[2018-05-29] MEDS: Nicotine 21 MG/24 Hr Patch TRDERM SCH (09:14)
--- NOTE | 2018-05-29 16:20 | PCM.PN ---
- General Info Date of Service: 05/29/18 Admission Dx/Problem (Free Text): Admission Diagnosis/Problem Admission Diagnosis/Problem Acute pancreatitis Subjective Update: No acute events overnight. Reports that she does not have chills anymore. Reports pain is now 6/10. States dilaudid worked better. Denies recurrence of nausea/vomiting. Denies fevers, chills, chest pain, shortness of breath, or any new symptoms. - Review of Systems General: Reports: No Symptoms HEENT: Reports: No Symptoms Pulmonary: Reports: No Symptoms Cardiovascular: Reports: No Symptoms Gastrointestinal: Reports: Abdominal Pain Genitourinary: Reports: No Symptoms Musculoskeletal: Reports: No Symptoms Skin: Reports: No Symptoms Neurological: Reports: No Symptoms Psychiatric: Reports: No Symptoms - Patient Data Vitals - Most Recent: Last Vital Signs Temp 98.9 F 05/29/18 12:23 Pulse 71 05/29/18 12:23 Resp 20 05/29/18 12:23 BP 152/86 H 05/29/18 12:23 Pulse Ox 98 05/29/18 12:23 Weight - Most Recent: 146 lb 8 oz I&O - Last 24 Hours: Intake & Output 05/29/18 05/29/18 05/29/18 06:59 14:59 22:59 Intake Total 150 1311 Output Total 1600 300 Balance -1450 1011 Lab Results Last 24 Hours: Laboratory Results - last 24 hr 05/28/18 05/28/18 05/28/18 Range/Units 18:20 18:20 18:20 WBC 15.5 H (5.0-10.0) 10^3/uL RBC 4.20 (4.2-5.4) 10^6/uL Hgb 14.1 (12.0-16.0) g/dL Hct 40.1 (37.0-47.0) % MCV 95.5 (80-100) fL MCH 33.6 (27.0-34.0) pg MCHC 35.2 H (33.0-35.0) g/dL Plt Count 302 (150-450) 10^3/uL Neut % (Auto) 89.7 H (42.2-75.2) % Lymph % (Auto) 4.4 L (20.5-50.1) % [place] % (Auto) 5.7 (2-8) % Eos % (Auto) 0.1 L (1.0-3.0) % Baso % (Auto) 0.1 (0.0-1.0) % Sodium 126 L D (135-145) mmol/L Potassium 4.1 (3.6-5.0) mmol/L Chloride 90 L D (101-111) mmol/L Carbon Dioxide 20.0 L (21.0-31.0) mmol/L Anion Gap 20.1 BUN 8 (7-18) mg/dL Creatinine 0.7 (0.6-1.3) mg/dL Est Cr Clr Drug Dosing 89.40 mL/min Estimated GFR (MDRD) > 60 BUN/Creatinine Ratio 11.42 Glucose 109 H (74-105) mg/dL Lactic Acid (0.5-2.2) mmol/L Calcium 8.8 (8.4-10.2) mg/dl Magnesium 1.6 L (1.8-2.5) mg/dL Total Bilirubin 1.2 H (0.2-1.0) mg/dL AST 15 (10-42) IU/L ALT 8 L (10-60) IU/L Alkaline Phosphatase 66 (42-121) IU/L Ammonia (11-35) umol/L Troponin I < 0.02 (0.00-0.02) ng/ml Total Protein 8.0 (6.7-8.2) g/dl Albumin 4.0 (3.2-5.5) g/dl Globulin 4.0 Albumin/Globulin Ratio 1.00 Amylase 107 H (28-100) U/L Lipase 105 H (22-51) U/L Urine Color (YELLOW) Urine Appearance (CLEAR) Urine pH (5.0-9.0) Ur Specific [place] (1.005-1.030) Urine Protein (NEGATIVE) Urine Glucose (UA) (NEGATIVE) Urine Ketones (NEGATIVE) Urine Occult Blood (NEGATIVE) Urine Nitrite (NEGATIVE) Urine Bilirubin (NEGATIVE) Urine Urobilinogen (0.2-1.0) mg/dL Ur Leukocyte Esterase (NEGATIVE) Urine RBC /HPF Urine WBC (0-5/HPF) /HPF Ur Epithelial Cells /HPF Urine Bacteria (0-FEW/HPF) /HPF Urine Mucus /LPF Urinalysis Comment Urine HCG, Qual 05/28/18 05/28/1805/28/19 Range/Units 18:44 18:44 20:12 WBC (5.0-10.0) 10^3/uL RBC (4.2-5.4) 10^6/uL Hgb (12.0-16.0) g/dL Hct (37.0-47.0) % MCV (80-100) fL MCH (27.0-34.0) pg MCHC (33.0-35.0) g/dL Plt Count (150-450) 10^3/uL Neut % (Auto) (42.2-75.2) % Lymph % (Auto) (20.5-50.1) % [place] % (Auto) (2-8) % Eos % (Auto) (1.0-3.0) % Baso % (Auto) (0.0-1.0) % Sodium (135-145) mmol/L Potassium (3.6-5.0) mmol/L Chloride (101-111) mmol/L Carbon Dioxide (21.0-31.0) mmol/L Anion Gap BUN (7-18) mg/dL Creatinine (0.6-1.3) mg/dL Est Cr Clr Drug Dosing mL/min Estimated GFR (MDRD) BUN/Creatinine Ratio Glucose (74-105) mg/dL Lactic Acid 1.0 (0.5-2.2) mmol/L Calcium (8.4-10.2) mg/dl Magnesium (1.8-2.5) mg/dL Total Bilirubin (0.2-1.0) mg/dL AST (10-42) IU/L ALT (10-60) IU/L Alkaline Phosphatase (42-121) IU/L Ammonia 17 (11-35) umol/L Troponin I (0.00-0.02) ng/ml Total Protein (6.7-8.2) g/dl Albumin (3.2-5.5) g/dl Globulin Albumin/Globulin Ratio Amylase (28-100) U/L Lipase (22-51) U/L Urine Color Yellow (YELLOW) Urine Appearance Slightly cloudy (CLEAR) Urine pH 6.0 (5.0-9.0) Ur Specific [place] >= 1.030 (1.005-1.030) Urine Protein 30 H (NEGATIVE) Urine Glucose (UA) Negative (NEGATIVE) Urine Ketones 80 H (NEGATIVE) Urine Occult Blood Moderate H (NEGATIVE) Urine Nitrite Negative (NEGATIVE) Urine Bilirubin Small H (NEGATIVE) Urine Urobilinogen 0.2 (0.2-1.0) mg/dL Ur Leukocyte Esterase Negative (NEGATIVE) Urine RBC 20-30 H /HPF Urine WBC 0-5 (0-5/HPF) /HPF Ur Epithelial Cells Moderate H /HPF Urine Bacteria Many H (0-FEW/HPF) /HPF Urine Mucus Many H /LPF Urinalysis Comment Urine HCG, Qual 05/28/18 05/28/18 05/28/18 Range/Units 20:12 22:05 22:05 WBC 12.2 H (5.0-10.0) 10^3/uL RBC 3.95 L (4.2-5.4) 10^6/uL Hgb 13.1 (12.0-16.0) g/dL Hct 37.8 (37.0-47.0) % MCV 95.7 (80-100) fL MCH 33.2 (27.0-34.0) pg MCHC 34.7 (33.0-35.0) g/dL Plt Count 277 (150-450) 10^3/uL Neut % (Auto) (42.2-75.2) % Lymph % (Auto) (20.5-50.1) % [place] % (Auto) (2-8) % Eos % (Auto) (1.0-3.0) % Baso % (Auto) (0.0-1.0) % Sodium 125 L (135-145) mmol/L Potassium 4.1 (3.6-5.0) mmol/L Chloride 90 L (101-111) mmol/L Carbon Dioxide 19.0 L (21.0-31.0) mmol/L Anion Gap 20.1 BUN 8 (7-18) mg/dL Creatinine 0.7 (0.6-1.3) mg/dL Est Cr Clr Drug Dosing 89.40 mL/min Estimated GFR (MDRD) > 60 BUN/Creatinine Ratio Glucose 144 H (74-105) mg/dL Lactic Acid (0.5-2.2) mmol/L Calcium 8.7 (8.4-10.2) mg/dl Magnesium (1.8-2.5) mg/dL Total Bilirubin (0.2-1.0) mg/dL AST (10-42) IU/L ALT (10-60) IU/L Alkaline Phosphatase (42-121) IU/L Ammonia (11-35) umol/L Troponin I (0.00-0.02) ng/ml Total Protein (6.7-8.2) g/dl Albumin (3.2-5.5) g/dl Globulin Albumin/Globulin Ratio Amylase (28-100) U/L Lipase (22-51) U/L Urine Color (YELLOW) Urine Appearance (CLEAR) Urine pH (5.0-9.0) Ur Specific [place] (1.005-1.030) Urine Protein (NEGATIVE) Urine Glucose (UA) (NEGATIVE) Urine Ketones (NEGATIVE) Urine Occult Blood (NEGATIVE) Urine Nitrite (NEGATIVE) Urine Bilirubin (NEGATIVE) Urine Urobilinogen (0.2-1.0) mg/dL Ur Leukocyte Esterase (NEGATIVE) Urine RBC /HPF Urine WBC (0-5/HPF) /HPF Ur Epithelial Cells /HPF Urine Bacteria (0-FEW/HPF) /HPF Urine Mucus /LPF Urinalysis Comment Urine HCG, Qual Negative 05/29/18 Range/Units 06:22 WBC (5.0-10.0) 10^3/uL RBC (4.2-5.4) 10^6/uL Hgb (12.0-16.0) g/dL Hct (37.0-47.0) % MCV (80-100) fL MCH (27.0-34.0) pg MCHC (33.0-35.0) g/dL Plt Count (150-450) 10^3/uL Neut % (Auto) (42.2-75.2) % Lymph % (Auto) (20.5-50.1) % [place] % (Auto) (2-8) % Eos % (Auto) (1.0-3.0) % Baso % (Auto) (0.0-1.0) % Sodium 130 L (135-145) mmol/L Potassium 4.3 (3.6-5.0) mmol/L Chloride 97 L (101-111) mmol/L Carbon Dioxide 23.0 (21.0-31.0) mmol/L Anion Gap 14.3 BUN 7 (7-18) mg/dL Creatinine 0.6 (0.6-1.3) mg/dL Est Cr Clr Drug Dosing 104.30 mL/min Estimated GFR (MDRD) > 60 BUN/Creatinine Ratio Glucose 114 H (74-105) mg/dL Lactic Acid (0.5-2.2) mmol/L Calcium 8.4 (8.4-10.2) mg/dl Magnesium (1.8-2.5) mg/dL Total Bilirubin (0.2-1.0) mg/dL AST (10-42) IU/L ALT (10-60) IU/L Alkaline Phosphatase (42-121) IU/L Ammonia (11-35) umol/L Troponin I (0.00-0.02) ng/ml Total Protein (6.7-8.2) g/dl Albumin (3.2-5.5) g/dl Globulin Albumin/Globulin Ratio Amylase (28-100) U/L Lipase (22-51) U/L Urine Color (YELLOW) Urine Appearance (CLEAR) Urine pH (5.0-9.0) Ur Specific [place] (1.005-1.030) Urine Protein (NEGATIVE) Urine Glucose (UA) (NEGATIVE) Urine Ketones (NEGATIVE) Urine Occult Blood (NEGATIVE) Urine Nitrite (NEGATIVE) Urine Bilirubin (NEGATIVE) Urine Urobilinogen (0.2-1.0) mg/dL Ur Leukocyte Esterase (NEGATIVE) Urine RBC /HPF Urine WBC (0-5/HPF) /HPF Ur Epithelial Cells /HPF Urine Bacteria (0-FEW/HPF) /HPF Urine Mucus /LPF Urinalysis Comment Urine HCG, Qual [place] Results Last 24 Hours: Microbiology 05/28/18 18:48 Aerobic Blood Culture - Preliminary Blood - Venous - Lab Draw Med Orders - Current: Current Medications Bisacodyl (Dulcolax) 5 mg PO DAILY PRN PRN Reason: Constipation Docusate Sodium (Colace) 100 mg PO BID PRN PRN Reason: Constipation Fentanyl (Sublimaze) 50 mcg IVPUSH Q3H PRN PRN Reason: Pain (moderate 4-6) Last Admin: 05/29/18 13:22 Dose: 50 mcg Heparin Sodium (Porcine) (Heparin Sodium) 5,000 units SUBCUT Q8HR [facility] Last Admin: 05/29/18 13:25 Dose: 5,000 units Lactated Ringer's (Ringers, Lactated) 1,000 mls @ 250 mls/hr IV ASDIRECTED [facility] Last Admin: 05/29/18 15:46 Dose: 250 mls/hr Vancomycin HCl 1 gm/ Sodium (Chloride) 250 mls @ 166.667 mls/hr IV Q8H [facility] Last Admin: 05/29/18 09:22 Dose: 166.667 mls/hr Piperacillin Sod/Tazobactam (Sod 3.375 gm/ Sodium Chloride) 100 mls @ 200 mls/ hr IV Q6H [facility] Last Infusion: 05/29/18 13:45 Dose: Infused Nicotine (Habitrol) 21 mg TRDERM DAILY [facility] Last Admin: 05/29/18 09:14 Dose: 21 mg Ondansetron HCl (Zofran) 4 mg IVPUSH Q4H PRN PRN Reason: Nausea/Vomiting Pantoprazole Sodium (Protonix Iv) 40 mg IVPUSH DAILY [facility] Last Admin: 05/29/18 09:14 Dose: 40 mg Polyethylene Glycol (Miralax) 17 gm PO DAILY PRN PRN Reason: Constipation Promethazine HCl (Phenergan) 6.25 mg IM Q6H PRN PRN Reason: Nausea/Vomiting Senna/Docusate Sodium (Senna Plus) 1 tab PO BEDTIME PRN PRN Reason: Constipation Vancomycin HCl (Pharmacy To Dose - Vancomycin) 1 dose .XX ASDIRECTED [facility] Discontinued Medications Fentanyl (Sublimaze) 25 mcg IVPUSH Q3H PRN PRN Reason: Abdominal Pain Last Admin: 05/29/18 11:08 Dose: 25 mcg Hydromorphone HCl (Dilaudid) 1 mg IVPUSH ONETIME ONE Stop: 05/28/18 21:14 Last Admin: 05/28/18 21:31 Dose: 1 mg Lactated Ringer's (Ringers, Lactated) 1,000 mls @ 125 mls/hr IV ASDIRECTED [facility] Last Admin: 05/28/18 19:00 Dose: 125 mls/hr Piperacillin Sod/Tazobactam (Sod 3.375 gm/ Sodium Chloride) 100 mls @ 200 mls/ hr IV Q6H [facility] Last Infusion: 05/29/18 06:31 Dose: Infused Iopamidol (Isovue-300 (61%)) 75 ml IVPUSH ONETIME ONE Stop: 05/28/18 21:15 Last Admin: 05/28/18 21:15 Dose: 75 ml Promethazine HCl (Phenergan) 25 mg IM ONETIME ONE Stop: 05/28/18 18:17 Last Admin: 05/28/18 18:51 Dose: 25 mg - Exam General: Alert, Oriented, Cooperative, Moderate Distress HEENT: Pupils Equal, Pupils Reactive, Mucous Membr. Moist/[place] Neck: Supple Lungs: Clear to Auscultation, Normal Respiratory Effort Cardiovascular: Regular Rate, Regular Rhythm, No Murmurs GI/Abdominal Exam: Normal Bowel Sounds, Soft, Tender Extremities: Normal Inspection, Normal Range of Motion, Non-Tender, No Pedal Edema Peripheral Pulses: 2+: Radial (L), Radial (R), Dorsalis Pedis (L), Dorsalis Pedis (R) Skin: Warm, Dry Wound/Incisions: Healing Well Neurological: No New Focal Deficit Psy/Mental Status: Alert, Normal Affect, Normal Mood - Problem List & Annotations (1) Hyponatremia SNOMED Code(s): 31079580 Code(s): E87.1 - HYPO-OSMOLALITY AND HYPONATREMIA Status: Acute Current Visit: Yes (2) SIRS (systemic inflammatory response syndrome) SNOMED Code(s): 922534986 Code(s): R65.10 - SIRS OF NON-INFECTIOUS ORIGIN W/O ACUTE ORGAN DYSFUNCTION Status: Acute Current Visit: Yes (3) Tobacco use disorder SNOMED Code(s): 849869601 Code(s): F17.200 - NICOTINE DEPENDENCE, UNSPECIFIED, UNCOMPLICATED Status: Acute Current Visit: Yes (4) Alcohol abuse SNOMED Code(s): 51041052 Code(s): F10.10 - ALCOHOL ABUSE, UNCOMPLICATED Status: Acute Current Visit: Yes (5) Marijuana abuse SNOMED Code(s): 36379638 Code(s): F12.10 - CANNABIS ABUSE, UNCOMPLICATED Status: Acute Current Visit: Yes (6) High anion gap metabolic acidosis SNOMED Code(s): 95103078 Code(s): E87.2 - ACIDOSIS Status: Acute Current Visit: Yes (7) Hypomagnesemia SNOMED Code(s): 426476994 Code(s): E83.42 - HYPOMAGNESEMIA Status: Acute Current Visit: Yes (8) Pancreatitis SNOMED Code(s): 83023159 Code(s): K85.9 - ACUTE PANCREATITIS, UNSPECIFIED * DO NOT USE * Status: Acute Current Visit: No - Problem List Review Problem List Initiated/Reviewed/Updated: Yes - My Orders Last 24 Hours: My Active Orders 05/28/18 21:50 Patient Status [ADT] Routine Oxygen Therapy [RC] PRN Up ad Rosina [RC] ASDIRECTED VTE/DVT Education [RC] PER UNIT ROUTINE Vital Signs [RC] 04,08,12,16,20,00 Bisacodyl [Dulcolax] 5 mg PO DAILY PRN Docusate Sodium [Colace] 100 mg PO BID PRN Docusate Sodium/Sennosides [Senna Plus] 1 tab PO BEDTIME PRN Ondansetron [Zofran] 4 mg IVPUSH Q4H PRN Polyethylene Glycol 3350 [MiraLAX] 17 gm PO DAILY PRN Promethazine [Phenergan] 6.25 mg IM Q6H PRN Resuscitation Status Routine 05/28/18 21:51 Cardiac Monitoring [RC] CONTINUOUS Intake and Output [RC] QSHIFT 05/28/18 22:00 Heparin Sodium 5,000 units SUBCUT Q8HR Lactated Ringers [Ringers, Lactated] 1,000 ml IV ASDIRECTED Nicotine [Habitrol] 21 mg TRDERM DAILY 05/28/18 23:30 Pharmacy to Dose - Vancomycin 1 dose .XX ASDIRECTED 05/28/18 Dinner Nothing per Oral Now Diet [DIET] 05/29/18 01:00 Vancomycin 1 gm Sodium Chloride 0.9% [Normal Saline] 250 ml IV Q8H 05/29/18 09:00 Pantoprazole [ProTONIX IV] 40 mg IVPUSH DAILY 05/29/18 11:45 fentaNYL [Sublimaze] 50 mcg IVPUSH Q3H PRN 05/29/18 12:00 Piperacillin/Tazobactam [Zosyn] 3.375 gm Sodium Chloride 0.9% [Normal Saline] 100 ml IV Q6H 05/30/18 08:30 VANCOMYCIN TROUGH [CHEM] Timed - Plan Plan:: #Acute recurrent pancreatitis: - NPO except ice chips - Anti-emetic protocol - LR - IV fentanyl, icnreased dose to 50 mcg q3 hours - Smoking and alcohol cessation counseling provided # Sepsis: unspecified source. UA negative. - Blood cultures positive for G+ cocci in clusters. - Continue broad spectrum antibiotics - IV fluids as above # Hypomagnesemia: -Monitor and replace #Hyponatremia: mild. Likely hypovolemic. - IVF as above - Serial BMP. # Tobacco use disorder: - Wants to quit - Counseling provided - Nicotine patch. #Continue other home medications that have been ordered. Code status: DNR/DNI DVT ppx: heparin GI PPx: Protonix
[2018-05-29] MEDS: Ondansetron 4 MG/2 ML SDV IVPUSH PRN (16:36)
[2018-05-30] MEDS: fentaNYL 100 MCG/2 ML SDV IVPUSH PRN ×3 (02:28→08:39)
[2018-05-30] MEDS: Lactated Ringers 1,000 ML IV SCH ×4 (04:44→23:06)
[2018-05-30] MEDS: Heparin Sodium 5,000 Units/ML Vial SUBCUT SCH ×3 (05:41→21:13)
[2018-05-30] MEDS: Piperacillin/Tazobactam 3.375 GM in Sodium Chloride 0.9% 100 ML IV SCH ×4 (05:42→23:45)
[2018-05-30] MEDS: Pantoprazole 40 MG Vial IVPUSH SCH (08:25)
[2018-05-30] MEDS: Nicotine 21 MG/24 Hr Patch TRDERM SCH (08:25)
[2018-05-30 08:54] LABS: ANION GAP 17.6; CHLORIDE,CL 95 mmol/L (101-111); SODIUM,NA 132 mmol/L (135-145)
--- NOTE | 2018-05-30 11:33 | PCM.PN ---
- General Info Date of Service: 05/30/18 Admission Dx/Problem (Free Text): Admission Diagnosis/Problem Admission Diagnosis/Problem Acute pancreatitis Subjective Update: No acute events overnight. Reports pain is now 4/10. Denies recurrence of nausea/vomiting. Denies fevers, chills, chest pain, shortness of breath, or any new symptoms. Has been passing gas but has not had any bowel movements because she is not eating. Did not ambulate much yesterday. Functional Status: Reports: Pain Controlled Pain Score: 4 - Review of Systems General: Reports: No Symptoms HEENT: Reports: No Symptoms Pulmonary: Reports: No Symptoms Cardiovascular: Reports: No Symptoms Gastrointestinal: Reports: Abdominal Pain, [place] Genitourinary: Reports: No Symptoms Musculoskeletal: Reports: No Symptoms Skin: Reports: No Symptoms Neurological: Reports: No Symptoms Psychiatric: Reports: No Symptoms - Patient Data Vitals - Most Recent: Last Vital Signs Temp 98.1 F 05/30/18 08:00 Pulse 74 05/30/18 08:00 Resp 20 05/30/18 08:00 BP 126/74 05/30/18 08:00 Pulse Ox 97 05/30/18 08:00 Weight - Most Recent: 146 lb 8 oz I&O - Last 24 Hours: Intake & Output 05/29/18 05/30/18 05/30/18 22:59 06:59 14:59 Intake Total 1681 1442 965 Output Total 1425 650 700 Balance 256 792 265 Lab Results Last 24 Hours: Laboratory Results - last 24 hr 05/30/18 05/30/18 05/30/18 Range/Units 08:30 08:30 08:30 WBC 9.8 (5.0-10.0) 10^3/uL RBC 3.52 L (4.2-5.4) 10^6/uL Hgb 11.6 L D (12.0-16.0) g/dL Hct 34.6 L (37.0-47.0) % MCV 98.3 (80-100) fL MCH 33.0 (27.0-34.0) pg MCHC 33.5 (33.0-35.0) g/dL Plt Count 199 D (150-450) 10^3/uL Sodium 132 L (135-145) mmol/L Potassium 3.6 (3.6-5.0) mmol/L Chloride 95 L (101-111) mmol/L Carbon Dioxide 23.0 (21.0-31.0) mmol/L Anion Gap 17.6 BUN 6 L (7-18) mg/dL Creatinine 0.7 (0.6-1.3) mg/dL Est Cr Clr Drug Dosing 89.40 mL/min Estimated GFR (MDRD) > 60 Glucose 79 (74-105) mg/dL Calcium 8.1 L (8.4-10.2) mg/dl Phosphorus 3.5 (2.5-4.6) mg/dL Magnesium 1.5 L (1.8-2.5) mg/dL Vancomycin Trough 18.6 H (10-15) ug/ml [place] Results Last 24 Hours: Microbiology 05/28/18 18:48 Aerobic Blood Culture - Preliminary Blood - Venous - Lab Draw Anaerobic Blood Culture - Preliminary NO GROWTH AFTER 1 DAY 05/28/18 18:44 Aerobic Blood Culture - Preliminary Blood - Venous NO GROWTH AFTER 1 DAY Anaerobic Blood Culture - Preliminary NO GROWTH AFTER 1 DAY Med Orders - Current: Current Medications Bisacodyl (Dulcolax) 5 mg PO DAILY PRN PRN Reason: Constipation Docusate Sodium (Colace) 100 mg PO BID PRN PRN Reason: Constipation Heparin Sodium (Porcine) (Heparin Sodium) 5,000 units SUBCUT Q8HR [facility] Last Admin: 05/30/18 05:41 Dose: 5,000 units Lactated Ringer's (Ringers, Lactated) 1,000 mls @ 250 mls/hr IV ASDIRECTED [facility] Last Admin: 05/30/18 09:14 Dose: 250 mls/hr Vancomycin HCl 1 gm/ Sodium (Chloride) 250 mls @ 166.667 mls/hr IV Q8H [facility] Last Admin: 05/30/18 09:10 Dose: 166.667 mls/hr Piperacillin Sod/Tazobactam (Sod 3.375 gm/ Sodium Chloride) 100 mls @ 200 mls/ hr IV Q6H [facility] Last Infusion: 05/30/18 06:15 Dose: Infused Nicotine (Habitrol) 21 mg TRDERM DAILY [facility] Last Admin: 05/30/18 08:25 Dose: 21 mg Ondansetron HCl (Zofran) 4 mg IVPUSH Q4H PRN PRN Reason: Nausea/Vomiting Last Admin: 05/29/18 16:36 Dose: 4 mg Oxycodone HCl (Oxycodone) 5 mg PO Q6H PRN PRN Reason: Pain >4 Pantoprazole Sodium (Protonix Iv) 40 mg IVPUSH DAILY [facility] Last Admin: 05/30/18 08:25 Dose: 40 mg Polyethylene Glycol (Miralax) 17 gm PO DAILY PRN PRN Reason: Constipation Promethazine HCl (Phenergan) 6.25 mg IM Q6H PRN PRN Reason: Nausea/Vomiting Senna/Docusate Sodium (Senna Plus) 1 tab PO BEDTIME PRN PRN Reason: Constipation Vancomycin HCl (Pharmacy To Dose - Vancomycin) 1 dose .XX ASDIRECTED [facility] Discontinued Medications Fentanyl (Sublimaze) 25 mcg IVPUSH Q3H PRN PRN Reason: Abdominal Pain Last Admin: 05/29/18 11:08 Dose: 25 mcg Fentanyl (Sublimaze) 50 mcg IVPUSH Q3H PRN PRN Reason: Pain (moderate 4-6) Last Admin: 05/30/18 08:39 Dose: 50 mcg Hydromorphone HCl (Dilaudid) 1 mg IVPUSH ONETIME ONE Stop: 05/28/18 21:14 Last Admin: 05/28/18 21:31 Dose: 1 mg Lactated Ringer's (Ringers, Lactated) 1,000 mls @ 125 mls/hr IV ASDIRECTED [facility] Last Admin: 05/28/18 19:00 Dose: 125 mls/hr Piperacillin Sod/Tazobactam (Sod 3.375 gm/ Sodium Chloride) 100 mls @ 200 mls/ hr IV Q6H [facility] Last Infusion: 05/29/18 06:31 Dose: Infused Iopamidol (Isovue-300 (61%)) 75 ml IVPUSH ONETIME ONE Stop: 05/28/18 21:15 Last Admin: 05/28/18 21:15 Dose: 75 ml Promethazine HCl (Phenergan) 25 mg IM ONETIME ONE Stop: 05/28/18 18:17 Last Admin: 05/28/18 18:51 Dose: 25 mg - Exam General: Alert, Oriented, Cooperative, No Acute Distress, Mild Distress HEENT: Pupils Equal, Pupils Reactive, Mucous Membr. Moist/[place] Neck: Supple Lungs: Clear to Auscultation, Normal Respiratory Effort Cardiovascular: Regular Rate, Regular Rhythm GI/Abdominal Exam: Normal Bowel Sounds, Soft, No Distention, Tender (Mild diffuse tenderness, worse on left periumbilical region. No guarding or rebound. ) Extremities: Normal Inspection, Non-Tender, No Pedal Edema Peripheral Pulses: 2+: Radial (L), Radial (R), Dorsalis Pedis (L), Dorsalis Pedis (R) Skin: Warm, Dry, Intact Neurological: No New Focal Deficit Psy/Mental Status: Alert, Normal Affect, Normal Mood - Problem List & Annotations (1) Hyponatremia SNOMED Code(s): 11708829 Code(s): E87.1 - HYPO-OSMOLALITY AND HYPONATREMIA Status: Acute Current Visit: Yes (2) SIRS (systemic inflammatory response syndrome) SNOMED Code(s): 816660776 Code(s): R65.10 - SIRS OF NON-INFECTIOUS ORIGIN W/O ACUTE ORGAN DYSFUNCTION Status: Acute Current Visit: Yes (3) Tobacco use disorder SNOMED Code(s): 132145625 Code(s): F17.200 - NICOTINE DEPENDENCE, UNSPECIFIED, UNCOMPLICATED Status: Acute Current Visit: Yes (4) Alcohol abuse SNOMED Code(s): 07299870 Code(s): F10.10 - ALCOHOL ABUSE, UNCOMPLICATED Status: Acute Current Visit: Yes (5) Marijuana abuse SNOMED Code(s): 61898204 Code(s): F12.10 - CANNABIS ABUSE, UNCOMPLICATED Status: Acute Current Visit: Yes (6) High anion gap metabolic acidosis SNOMED Code(s): 18873502 Code(s): E87.2 - ACIDOSIS Status: Acute Current Visit: Yes (7) Hypomagnesemia SNOMED Code(s): 120531930 Code(s): E83.42 - HYPOMAGNESEMIA Status: Acute Current Visit: Yes (8) Pancreatitis SNOMED Code(s): 55637959 Code(s): K85.9 - ACUTE PANCREATITIS, UNSPECIFIED * DO NOT USE * Status: Acute Priority: High Current Visit: Yes (9) Sepsis due to Gram negative bacteria SNOMED Code(s): 200089263 Code(s): A41.50 - GRAM-NEGATIVE SEPSIS, UNSPECIFIED Status: Acute Priority: High Current Visit: Yes - Problem List Review Problem List Initiated/Reviewed/Updated: Yes - My Orders Last 24 Hours: My Active Orders 05/29/18 12:00 Piperacillin/Tazobactam [Zosyn] 3.375 gm Sodium Chloride 0.9% [Normal Saline] 100 ml IV Q6H 05/30/18 11:30 CULTURE BLOOD [BC] Stat CULTURE BLOOD [BC] Stat Blood Culture x2 Reflex Set [OM.PC] Stat 05/30/18 11:31 oxyCODONE 5 mg PO Q6H PRN 05/30/18 Lunch Clear Liquid Diet [DIET] 05/31/18 05:11 BASIC METABOLIC PANEL,BMP [CHEM] AM CBC W/O DIFF,HEMOGRAM [HEME] AM - Plan Plan:: #Acute recurrent pancreatitis: Pain is improved. patient willing to try po pain medications and try diet. She understands that if pain increases or remains constant, diet will have to be suspended until she is not requiring pain medications. Also understands that plan is to discharge with no prescription pain medications. - Clear liquid diet - Anti-emetic protocol - LR - Discontinue IV fentanyl - Start PO oxycodone 5 mg q6 hours. - Smoking and alcohol cessation counseling provided # Sepsis: unspecified source. UA negative. - Blood cultures positive for G+ cocci in clusters. - Continue broad spectrum antibiotics - IV fluids as above - Repeat blood cultures # Hypomagnesemia: -Monitor and replace #Hyponatremia: mild. Likely hypovolemic. - IVF as above - Serial BMP. # Tobacco use disorder: - Wants to quit - Counseling provided - Nicotine patch. #Continue other home medications that have been ordered. #Acute anemia + drop in platelets: likely hemodilutional. No concern for HIT at this time. - Monitor CBC. Code status: DNR/DNI DVT ppx: heparin GI PPx: Protonix
[2018-05-30] MEDS: oxyCODONE 5 MG Tab PO PRN ×2 (13:17→20:10)
[2018-05-31] MEDS: oxyCODONE 5 MG Tab PO PRN ×2 (04:16→12:20)
[2018-05-31] MEDS: Lactated Ringers 1,000 ML IV SCH ×3 (05:25→21:06)
[2018-05-31] MEDS: Piperacillin/Tazobactam 3.375 GM in Sodium Chloride 0.9% 100 ML IV SCH (05:25)
[2018-05-31] MEDS: Heparin Sodium 5,000 Units/ML Vial SUBCUT SCH ×3 (05:28→21:13)
[2018-05-31 09:00] LABS: ANION GAP 14.4
[2018-05-31] MEDS: Nicotine 21 MG/24 Hr Patch TRDERM SCH (09:15)
[2018-05-31] MEDS: Pantoprazole 40 MG Vial IVPUSH SCH (11:06)
--- NOTE | 2018-05-31 11:36 | PCM.PN ---
- General Info Date of Service: 05/31/18 Admission Dx/Problem (Free Text): Admission Diagnosis/Problem Admission Diagnosis/Problem Acute pancreatitis Subjective Update: No acute events overnight. Reports pain is now 1/10. Denies recurrence of nausea/vomiting. Denies fevers, chills, chest pain, shortness of breath, or any new symptoms. Has been passing gas but has not had any bowel movements because she is not eating. Did ambulate yesterday. - Review of Systems Systems Review Comment:: As per subjective above. - Patient Data Vitals - Most Recent: Last Vital Signs Temp 98.7 F 05/31/18 08:00 Pulse 71 05/31/18 08:00 Resp 18 05/31/18 08:00 BP 102/62 05/31/18 08:00 Pulse Ox 90 L 05/31/18 08:00 Weight - Most Recent: 146 lb 8 oz I&O - Last 24 Hours: Intake & Output 05/30/18 05/31/18 05/31/18 22:59 06:59 14:59 Intake Total 2421 1520 Output Total 600 Balance 2421 920 Lab Results Last 24 Hours: Laboratory Results - last 24 hr 05/31/18 05/31/18 05/31/18 Range/Units 08:30 08:30 08:30 WBC 7.4 (5.0-10.0) 10^3/uL RBC 3.17 L (4.2-5.4) 10^6/uL Hgb 10.5 L (12.0-16.0) g/dL Hct 30.9 L (37.0-47.0) % MCV 97.5 (80-100) fL MCH 33.1 (27.0-34.0) pg MCHC 34.0 (33.0-35.0) g/dL Plt Count 216 (150-450) 10^3/uL Sodium 135 (135-145) mmol/L Potassium 3.4 L (3.6-5.0) mmol/L Chloride 99 L (101-111) mmol/L Carbon Dioxide 25.0 (21.0-31.0) mmol/L Anion Gap 14.4 BUN 6 L (7-18) mg/dL Creatinine 1.3 (0.6-1.3) mg/dL Est Cr Clr Drug Dosing 48.14 mL/min Estimated GFR (MDRD) 44 Glucose 99 (74-105) mg/dL Calcium 7.8 L (8.4-10.2) mg/dl Phosphorus (2.5-4.6) mg/dL Magnesium 1.5 L (1.8-2.5) mg/dL Total Bilirubin (0.2-1.0) mg/dL Direct Bilirubin (0.0-0.2) mg/dL Indirect Bilirubin AST (10-42) IU/L ALT (10-60) IU/L Alkaline Phosphatase (42-121) IU/L Total Protein (6.7-8.2) g/dl Albumin (3.2-5.5) g/dl Globulin Albumin/Globulin Ratio Vancomycin Trough 29.9 H (10-15) ug/ml 05/31/18 05/31/18 Range/Units 08:30 08:30 WBC (5.0-10.0) 10^3/uL RBC (4.2-5.4) 10^6/uL Hgb (12.0-16.0) g/dL Hct (37.0-47.0) % MCV (80-100) fL MCH (27.0-34.0) pg MCHC (33.0-35.0) g/dL Plt Count (150-450) 10^3/uL Sodium (135-145) mmol/L Potassium (3.6-5.0) mmol/L Chloride (101-111) mmol/L Carbon Dioxide (21.0-31.0) mmol/L Anion Gap BUN (7-18) mg/dL Creatinine (0.6-1.3) mg/dL Est Cr Clr Drug Dosing mL/min Estimated GFR (MDRD) Glucose (74-105) mg/dL Calcium (8.4-10.2) mg/dl Phosphorus 3.6 (2.5-4.6) mg/dL Magnesium (1.8-2.5) mg/dL Total Bilirubin 0.9 (0.2-1.0) mg/dL Direct Bilirubin 0.2 (0.0-0.2) mg/dL Indirect Bilirubin 0.7 AST 33 (10-42) IU/L ALT 12 (10-60) IU/L Alkaline Phosphatase 64 (42-121) IU/L Total Protein 5.4 L (6.7-8.2) g/dl Albumin 2.4 L (3.2-5.5) g/dl Globulin 3.0 Albumin/Globulin Ratio 0.80 Vancomycin Trough (10-15) ug/ml [place] Results Last 24 Hours: Microbiology 05/28/18 18:48 Aerobic Blood Culture - Final Blood - Venous - Lab Draw Staph Hominis Ss Hominis Anaerobic Blood Culture - Preliminary NO GROWTH AFTER 2 DAYS 05/28/18 18:44 Aerobic Blood Culture - Preliminary Blood - Venous NO GROWTH AFTER 2 DAYS Anaerobic Blood Culture - Preliminary NO GROWTH AFTER 2 DAYS Med Orders - Current: Current Medications Bisacodyl (Dulcolax) 5 mg PO DAILY PRN PRN Reason: Constipation Docusate Sodium (Colace) 100 mg PO BID PRN PRN Reason: Constipation Last Admin: 05/30/18 13:17 Dose: 100 mg Heparin Sodium (Porcine) (Heparin Sodium) 5,000 units SUBCUT Q8HR COUNTS INCLUDE 234 BEDS AT THE [facility] Last Admin: 05/31/18 05:28 Dose: Not Given Vancomycin HCl 1 gm/ Sodium (Chloride) 250 mls @ 166.667 mls/hr IV BID COUNTS INCLUDE 234 BEDS AT THE [facility] Lactated Ringer's (Ringers, Lactated) 1,000 mls @ 125 mls/hr IV ASDIRECTED COUNTS INCLUDE 234 BEDS AT THE [facility] Ceftriaxone Sodium 2 gm/ (Sodium Chloride) 100 mls @ 50 mls/hr IV Q24H COUNTS INCLUDE 234 BEDS AT THE [facility] Nicotine (Habitrol) 21 mg TRDERM DAILY COUNTS INCLUDE 234 BEDS AT THE [facility] Last Admin: 05/31/18 09:15 Dose: 21 mg Ondansetron HCl (Zofran) 4 mg IVPUSH Q4H PRN PRN Reason: Nausea/Vomiting Last Admin: 05/29/18 16:36 Dose: 4 mg Oxycodone HCl (Oxycodone) 5 mg PO Q6H PRN PRN Reason: Pain >4 Last Admin: 05/31/18 04:16 Dose: 5 mg Pantoprazole Sodium (Protonix Iv) 40 mg IVPUSH DAILY COUNTS INCLUDE 234 BEDS AT THE [facility] Last Admin: 05/31/18 11:06 Dose: 40 mg Polyethylene Glycol (Miralax) 17 gm PO DAILY PRN PRN Reason: Constipation Promethazine HCl (Phenergan) 6.25 mg IM Q6H PRN PRN Reason: Nausea/Vomiting Senna/Docusate Sodium (Senna Plus) 1 tab PO BEDTIME PRN PRN Reason: Constipation Vancomycin HCl (Pharmacy To Dose - Vancomycin) 1 dose .XX ASDIRECTED COUNTS INCLUDE 234 BEDS AT THE [facility] Discontinued Medications Fentanyl (Sublimaze) 25 mcg IVPUSH Q3H PRN PRN Reason: Abdominal Pain Last Admin: 05/29/18 11:08 Dose: 25 mcg Fentanyl (Sublimaze) 50 mcg IVPUSH Q3H PRN PRN Reason: Pain (moderate 4-6) Last Admin: 05/30/18 08:39 Dose: 50 mcg Hydromorphone HCl (Dilaudid) 1 mg IVPUSH ONETIME ONE Stop: 05/28/18 21:14 Last Admin: 05/28/18 21:31 Dose: 1 mg Lactated Ringer's (Ringers, Lactated) 1,000 mls @ 125 mls/hr IV ASDIRECTED COUNTS INCLUDE 234 BEDS AT THE [facility] Last Admin: 05/28/18 19:00 Dose: 125 mls/hr Lactated Ringer's (Ringers, Lactated) 1,000 mls @ 250 mls/hr IV ASDIRECTED COUNTS INCLUDE 234 BEDS AT THE [facility] Last Admin: 05/31/18 05:25 Dose: 250 mls/hr Piperacillin Sod/Tazobactam (Sod 3.375 gm/ Sodium Chloride) 100 mls @ 200 mls/ hr IV Q6H COUNTS INCLUDE 234 BEDS AT THE [facility] Last Infusion: 05/29/18 06:31 Dose: Infused Vancomycin HCl 1 gm/ Sodium (Chloride) 250 mls @ 166.667 mls/hr IV Q8H COUNTS INCLUDE 234 BEDS AT THE [facility] Last Admin: 05/31/18 11:17 Dose: Not Given Piperacillin Sod/Tazobactam (Sod 3.375 gm/ Sodium Chloride) 100 mls @ 200 mls/ hr IV Q6H COUNTS INCLUDE 234 BEDS AT THE [facility] Last Infusion: 05/31/18 05:56 Dose: Infused Ceftriaxone Sodium 2 mg/ (Sodium Chloride) 100 mls @ 200 mls/hr IV Q24H COUNTS INCLUDE 234 BEDS AT THE [facility] Iopamidol (Isovue-300 (61%)) 75 ml IVPUSH ONETIME ONE Stop: 05/28/18 21:15 Last Admin: 05/28/18 21:15 Dose: 75 ml Promethazine HCl (Phenergan) 25 mg IM ONETIME ONE Stop: 05/28/18 18:17 Last Admin: 05/28/18 18:51 Dose: 25 mg - Exam General: Alert, Oriented, Cooperative, No Acute Distress HEENT: Pupils Equal, Mucous Membr. Moist/[place] Neck: Supple Lungs: Clear to Auscultation, Normal Respiratory Effort, Crackles Cardiovascular: Regular Rate, Regular Rhythm GI/Abdominal Exam: Normal Bowel Sounds, Soft, No Distention, Tender (Mild adelso- umbilical tenderness ) - Problem List & Annotations (1) Hyponatremia SNOMED Code(s): 82032309 Code(s): E87.1 - HYPO-OSMOLALITY AND HYPONATREMIA Status: Acute Current Visit: Yes (2) SIRS (systemic inflammatory response syndrome) SNOMED Code(s): 558890499 Code(s): R65.10 - SIRS OF NON-INFECTIOUS ORIGIN W/O ACUTE ORGAN DYSFUNCTION Status: Acute Current Visit: Yes (3) Tobacco use disorder SNOMED Code(s): 931132011 Code(s): F17.200 - NICOTINE DEPENDENCE, UNSPECIFIED, UNCOMPLICATED Status: Acute Current Visit: Yes (4) Alcohol abuse SNOMED Code(s): 35182346 Code(s): F10.10 - ALCOHOL ABUSE, UNCOMPLICATED Status: Acute Current Visit: Yes (5) Marijuana abuse SNOMED Code(s): 44266182 Code(s): F12.10 - CANNABIS ABUSE, UNCOMPLICATED Status: Acute Current Visit: Yes (6) High anion gap metabolic acidosis SNOMED Code(s): 78854416 Code(s): E87.2 - ACIDOSIS Status: Acute Current Visit: Yes (7) Hypomagnesemia SNOMED Code(s): 012058164 Code(s): E83.42 - HYPOMAGNESEMIA Status: Acute Current Visit: Yes (8) Pancreatitis SNOMED Code(s): 37124050 Code(s): K85.9 - ACUTE PANCREATITIS, UNSPECIFIED * DO NOT USE * Status: Acute Priority: High Current Visit: Yes (9) Sepsis due to Gram negative bacteria SNOMED Code(s): 026512011 Code(s): A41.50 - GRAM-NEGATIVE SEPSIS, UNSPECIFIED Status: Acute Priority: High Current Visit: Yes - Problem List Review Problem List Initiated/Reviewed/Updated: Yes - My Orders Last 24 Hours: My Active Orders 05/30/18 11:30 Blood Culture x2 Reflex Set [OM.PC] Stat 05/30/18 11:31 oxyCODONE 5 mg PO Q6H PRN 05/30/18 12:53 CULTURE BLOOD [BC] Stat 05/30/18 13:00 CULTURE BLOOD [BC] Stat 05/30/18 15:28 Blood Culture x2 Reflex Set [OM.PC] Stat 05/31/18 11:00 Lactated Ringers [Ringers, Lactated] 1,000 ml IV ASDIRECTED 05/31/18 11:30 cefTRIAXone [Rocephin] 2 gm Sodium Chloride 0.9% [Normal Saline] 100 ml IV Q24H 05/31/18 Lunch Full Liquid Diet [DIET] 06/01/18 05:11 CBC W/O DIFF,HEMOGRAM [HEME] DAILY RENAL FUNCTION PANEL,RFP [CHEM] DAILY 06/01/18 09:00 Vancomycin 1 gm Sodium Chloride 0.9% [Normal Saline] 250 ml IV BID 06/02/18 05:11 CBC W/O DIFF,HEMOGRAM [HEME] DAILY RENAL FUNCTION PANEL,RFP [CHEM] DAILY - Plan Plan:: #Acute recurrent pancreatitis: Pain is improved. patient tolerating oral medication and CLD. Wants to advance to full liquids or try toast this morning.. She understands that if pain increases or remains constant, diet will have to be suspended until she is not requiring pain medications. Also understands that plan is to discharge with no prescription pain medications. - Full liquid diet - Anti-emetic protocol - LR - Continue PO oxycodone 5 mg q6 hours. - Smoking and alcohol cessation counseling provided # Sepsis: unspecified source. UA negative. Bcx positive for Staph hominis in 1/ 2 bottles. - Start Rocephin - IV fluids as above - Repeat blood cultures pending. # Hypomagnesemia: -Monitor and replace #Hyponatremia: Resolved. Likely hypovolemic. - MOnitor BMP. # Tobacco use disorder: - Wants to quit - Counseling provided - Nicotine patch. #Continue other home medications that have been ordered. #Acute anemia + drop in platelets: likely hemodilutional. No concern for HIT at this time. - Monitor CBC. Code status: DNR/DNI DVT ppx: heparin GI PPx: Protonix
[2018-05-31] MEDS ORDERED: cefTRIAXone 2 GM in Sodium Chloride 0.9% 100 ML IV SCH ×2 (12:00→12:04)
[2018-05-31] MEDS: Ondansetron 4 MG/2 ML SDV IVPUSH PRN (22:28)
[2018-06-01] MEDS: oxyCODONE 5 MG Tab PO PRN ×2 (04:35→20:34)
[2018-06-01] MEDS: Lactated Ringers 1,000 ML IV SCH ×4 (04:36→20:34)
[2018-06-01] MEDS: Heparin Sodium 5,000 Units/ML Vial SUBCUT SCH ×4 (05:19→21:11)
[2018-06-01] MEDS ORDERED: Iopamidol 755 Mg/ML 100 ML Bottle IVPUSH ONE (05:22)
[2018-06-01 06:03] LABS: ANION GAP 15.1
[2018-06-01] MEDS ORDERED: Magnesium Sulfate/Water 2 GM in Premix Bag 1 BAG IV ONE (08:30)
--- NOTE | 2018-06-01 08:35 | PCM.PN ---
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 Reports that she got winded when she went to the bathroom. Denies abdominal pain. States the nausea recurred. Denies fevers, chills, chest pain, shortness of breath, or any new symptoms. Has been passing gas and having bowel movement. - Review of Systems Systems Review Comment:: As per subjective update. - Patient Data Vitals - Most Recent: Last Vital Signs Temp 98.8 F 06/01/18 08:00 Pulse 71 06/01/18 08:00 Resp 22 H 06/01/18 08:00 BP 163/79 H 06/01/18 08:00 Pulse Ox 93 L 06/01/18 08:00 Weight - Most Recent: 146 lb 8 oz Lab Results Last 24 Hours: Laboratory Results - last 24 hr 05/31/18 05/31/18 05/31/18 Range/Units 08:30 08:30 08:30 WBC 7.4 (5.0-10.0) 10^3/uL RBC 3.17 L (4.2-5.4) 10^6/uL Hgb 10.5 L (12.0-16.0) g/dL Hct 30.9 L (37.0-47.0) % MCV 97.5 (80-100) fL MCH 33.1 (27.0-34.0) pg MCHC 34.0 (33.0-35.0) g/dL Plt Count 216 (150-450) 10^3/uL Sodium 135 (135-145) mmol/L Potassium 3.4 L (3.6-5.0) mmol/L Chloride 99 L (101-111) mmol/L Carbon Dioxide 25.0 (21.0-31.0) mmol/L Anion Gap 14.4 BUN 6 L (7-18) mg/dL Creatinine 1.3 (0.6-1.3) mg/dL Est Cr Clr Drug Dosing 48.14 mL/min Estimated GFR (MDRD) 44 BUN/Creatinine Ratio Glucose 99 (74-105) mg/dL Calcium 7.8 L (8.4-10.2) mg/dl Phosphorus (2.5-4.6) mg/dL Magnesium 1.5 L (1.8-2.5) mg/dL Total Bilirubin (0.2-1.0) mg/dL Direct Bilirubin (0.0-0.2) mg/dL Indirect Bilirubin AST (10-42) IU/L ALT (10-60) IU/L Alkaline Phosphatase (42-121) IU/L Troponin I (0.00-0.02) ng/ml Total Protein (6.7-8.2) g/dl Albumin (3.2-5.5) g/dl Globulin Albumin/Globulin Ratio Vancomycin Trough 29.9 H (10-15) ug/ml 05/31/18 05/31/18 06/01/18 Range/Units 08:30 08:30 05:35 WBC 7.0 (5.0-10.0) 10^3/uL RBC 3.46 L (4.2-5.4) 10^6/uL Hgb 11.4 L (12.0-16.0) g/dL Hct 33.3 L (37.0-47.0) % MCV 96.2 (80-100) fL MCH 32.9 (27.0-34.0) pg MCHC 34.2 (33.0-35.0) g/dL Plt Count 191 (150-450) 10^3/uL Sodium (135-145) mmol/L Potassium (3.6-5.0) mmol/L Chloride (101-111) mmol/L Carbon Dioxide (21.0-31.0) mmol/L Anion Gap BUN (7-18) mg/dL Creatinine (0.6-1.3) mg/dL Est Cr Clr Drug Dosing mL/min Estimated GFR (MDRD) BUN/Creatinine Ratio Glucose (74-105) mg/dL Calcium (8.4-10.2) mg/dl Phosphorus 3.6 (2.5-4.6) mg/dL Magnesium (1.8-2.5) mg/dL Total Bilirubin 0.9 (0.2-1.0) mg/dL Direct Bilirubin 0.2 (0.0-0.2) mg/dL Indirect Bilirubin 0.7 AST 33 (10-42) IU/L ALT 12 (10-60) IU/L Alkaline Phosphatase 64 (42-121) IU/L Troponin I (0.00-0.02) ng/ml Total Protein 5.4 L (6.7-8.2) g/dl Albumin 2.4 L (3.2-5.5) g/dl Globulin 3.0 Albumin/Globulin Ratio 0.80 Vancomycin Trough (10-15) ug/ml 06/01/18 06/01/18 06/01/18 Range/Units 05:35 05:35 05:35 WBC (5.0-10.0) 10^3/uL RBC (4.2-5.4) 10^6/uL Hgb (12.0-16.0) g/dL Hct (37.0-47.0) % MCV (80-100) fL MCH (27.0-34.0) pg MCHC (33.0-35.0) g/dL Plt Count (150-450) 10^3/uL Sodium 136 (135-145) mmol/L Potassium 3.1 L (3.6-5.0) mmol/L Chloride 102 (101-111) mmol/L Carbon Dioxide 22.0 (21.0-31.0) mmol/L Anion Gap 15.1 BUN 6 L (7-18) mg/dL Creatinine 1.5 H (0.6-1.3) mg/dL Est Cr Clr Drug Dosing 41.72 mL/min Estimated GFR (MDRD) 37 BUN/Creatinine Ratio 4.00 Glucose 100 (74-105) mg/dL Calcium 7.9 L (8.4-10.2) mg/dl Phosphorus 4.0 (2.5-4.6) mg/dL Magnesium 1.6 L (1.8-2.5) mg/dL Total Bilirubin (0.2-1.0) mg/dL Direct Bilirubin (0.0-0.2) mg/dL Indirect Bilirubin AST (10-42) IU/L ALT (10-60) IU/L Alkaline Phosphatase (42-121) IU/L Troponin I 0.02 (0.00-0.02) ng/ml Total Protein (6.7-8.2) g/dl Albumin 2.8 L (3.2-5.5) g/dl Globulin Albumin/Globulin Ratio Vancomycin Trough (10-15) ug/ml [place] Results Last 24 Hours: Microbiology 05/28/18 18:48 Aerobic Blood Culture - Final Blood - Venous - Lab Draw Staph Hominis Ss Hominis Anaerobic Blood Culture - Preliminary NO GROWTH AFTER 3 DAYS 05/28/18 18:44 Aerobic Blood Culture - Preliminary Blood - Venous NO GROWTH AFTER 3 DAYS Anaerobic Blood Culture - Preliminary NO GROWTH AFTER 3 DAYS 05/30/18 13:00 Aerobic Blood Culture - Preliminary Blood - Venous - Lab Draw NO GROWTH AFTER 1 DAY Anaerobic Blood Culture - Preliminary NO GROWTH AFTER 1 DAY 05/30/18 12:53 Aerobic Blood Culture - Preliminary Blood - Venous NO GROWTH AFTER 1 DAY Anaerobic Blood Culture - Preliminary NO GROWTH AFTER 1 DAY Med Orders - Current: Current Medications Bisacodyl (Dulcolax) 5 mg PO DAILY PRN PRN Reason: Constipation Docusate Sodium (Colace) 100 mg PO BID PRN PRN Reason: Constipation Last Admin: 05/30/18 13:17 Dose: 100 mg Heparin Sodium (Porcine) (Heparin Sodium) 5,000 units SUBCUT Q8HR [facility] Last Admin: 06/01/18 05:19 Dose: Not Given Lactated Ringer's (Ringers, Lactated) 1,000 mls @ 250 mls/hr IV ASDIRECTED [facility] Last Admin: 06/01/18 04:36 Dose: 125 mls/hr Magnesium Sulfate 2 gm/ Premix 50 mls @ 25 mls/hr IV ONETIME ONE Stop: 06/01/18 10:29 Potassium Chloride 10 meq/ (Premix) 100 mls @ 100 mls/hr IV Q1H [facility] Stop: 06/01/18 12:29 Nicotine (Habitrol) 21 mg TRDERM DAILY [facility] Last Admin: 05/31/18 09:15 Dose: 21 mg Patients Own ( Pancrelipase/Creon 2 Tab) 2 tab PO TIDMEALS [facility] Ondansetron HCl (Zofran) 4 mg IVPUSH Q4H PRN PRN Reason: Nausea/Vomiting Last Admin: 05/31/18 22:28 Dose: 4 mg Oxycodone HCl (Oxycodone) 5 mg PO Q6H PRN PRN Reason: Pain >4 Last Admin: 06/01/18 04:35 Dose: 5 mg Pantoprazole Sodium (Protonix Iv) 40 mg IVPUSH DAILY [facility] Last Admin: 05/31/18 11:06 Dose: 40 mg Polyethylene Glycol (Miralax) 17 gm PO DAILY PRN PRN Reason: Constipation Promethazine HCl (Phenergan) 6.25 mg IM Q6H PRN PRN Reason: Nausea/Vomiting Senna/Docusate Sodium (Senna Plus) 1 tab PO BEDTIME PRN PRN Reason: Constipation Discontinued Medications Fentanyl (Sublimaze) 25 mcg IVPUSH Q3H PRN PRN Reason: Abdominal Pain Last Admin: 05/29/18 11:08 Dose: 25 mcg Fentanyl (Sublimaze) 50 mcg IVPUSH Q3H PRN PRN Reason: Pain (moderate 4-6) Last Admin: 05/30/18 08:39 Dose: 50 mcg Hydromorphone HCl (Dilaudid) 1 mg IVPUSH ONETIME ONE Stop: 05/28/18 21:14 Last Admin: 05/28/18 21:31 Dose: 1 mg Lactated Ringer's (Ringers, Lactated) 1,000 mls @ 125 mls/hr IV ASDIRECTED [facility] Last Admin: 05/28/18 19:00 Dose: 125 mls/hr Lactated Ringer's (Ringers, Lactated) 1,000 mls @ 250 mls/hr IV ASDIRECTED [facility] Last Admin: 05/31/18 05:25 Dose: 250 mls/hr Piperacillin Sod/Tazobactam (Sod 3.375 gm/ Sodium Chloride) 100 mls @ 200 mls/ hr IV Q6H [facility] Last Infusion: 05/29/18 06:31 Dose: Infused Vancomycin HCl 1 gm/ Sodium (Chloride) 250 mls @ 166.667 mls/hr IV Q8H [facility] Last Admin: 05/31/18 11:17 Dose: Not Given Piperacillin Sod/Tazobactam (Sod 3.375 gm/ Sodium Chloride) 100 mls @ 200 mls/ hr IV Q6H [facility] Last Infusion: 05/31/18 05:56 Dose: Infused Ceftriaxone Sodium 2 mg/ (Sodium Chloride) 100 mls @ 200 mls/hr IV Q24H [facility] Last Admin: 05/31/18 11:50 Dose: Not Given Vancomycin HCl 1 gm/ Sodium (Chloride) 250 mls @ 166.667 mls/hr IV BID [facility] Ceftriaxone Sodium 2 gm/ (Sodium Chloride) 100 mls @ 200 mls/hr IV Q24H [facility] Last Admin: 05/31/18 12:13 Dose: Not Given Ceftriaxone Sodium 2 gm/ (Sodium Chloride) 100 mls @ 200 mls/hr IV Q24H [facility] [place] Last Admin: 05/31/18 12:19 Dose: 200 mls/hr Iopamidol (Isovue-300 (61%)) 75 ml IVPUSH ONETIME ONE Stop: 05/28/18 21:15 Last Admin: 05/28/18 21:15 Dose: 75 ml Iopamidol (Isovue-370 (76%)) 100 ml IVPUSH ONETIME ONE Stop: 06/01/18 05:23 Last Admin: 06/01/18 06:00 Dose: 100 ml Promethazine HCl (Phenergan) 25 mg IM ONETIME ONE Stop: 05/28/18 18:17 Last Admin: 05/28/18 18:51 Dose: 25 mg Vancomycin HCl (Pharmacy To Dose - Vancomycin) 1 dose .XX ASDIRECTED [facility] - Exam General: Alert, Oriented HEENT: Pupils Equal, EOMI, Mucous Membr. Moist/[place] Lungs: Clear to Auscultation, Normal Respiratory Effort Cardiovascular: Regular Rate, Regular Rhythm GI/Abdominal Exam: Normal Bowel Sounds, Soft, Non-Tender, No Organomegaly, No Distention Extremities: Normal Inspection, Normal Range of Motion, No Pedal Edema Peripheral Pulses: 2+: Radial (L), Radial (R), Dorsalis Pedis (L), Dorsalis Pedis (R) Skin: Warm, Dry, Intact Neurological: No New Focal Deficit Psy/Mental Status: Alert, Normal Affect, Normal Mood EKG INTERPRETATION Rhythm: NSR [place]: Normal P-Wave: Present QRS: Normal ST-T: Normal QT: Prolonged - Problem List & Annotations (1) Hyponatremia SNOMED Code(s): 74063767 Code(s): E87.1 - HYPO-OSMOLALITY AND HYPONATREMIA Status: Acute Current Visit: Yes (2) SIRS (systemic inflammatory response syndrome) SNOMED Code(s): 434299777 Code(s): R65.10 - SIRS OF NON-INFECTIOUS ORIGIN W/O ACUTE ORGAN DYSFUNCTION Status: Acute Current Visit: Yes (3) Tobacco use disorder SNOMED Code(s): 064394114 Code(s): F17.200 - NICOTINE DEPENDENCE, UNSPECIFIED, UNCOMPLICATED Status: Acute Current Visit: Yes (4) Alcohol abuse SNOMED Code(s): 33729823 Code(s): F10.10 - ALCOHOL ABUSE, UNCOMPLICATED Status: Acute Current Visit: Yes (5) Marijuana abuse SNOMED Code(s): 27479932 Code(s): F12.10 - CANNABIS ABUSE, UNCOMPLICATED Status: Acute Current Visit: Yes (6) High anion gap metabolic acidosis SNOMED Code(s): 26870022 Code(s): E87.2 - ACIDOSIS Status: Acute Current Visit: Yes (7) Hypomagnesemia SNOMED Code(s): 059735921 Code(s): E83.42 - HYPOMAGNESEMIA Status: Acute Current Visit: Yes (8) Pancreatitis SNOMED Code(s): 01469845 Code(s): K85.9 - ACUTE PANCREATITIS, UNSPECIFIED * DO NOT USE * Status: Acute Priority: High Current Visit: Yes (9) Sepsis due to Gram negative bacteria SNOMED Code(s): 508321947 Code(s): A41.50 - GRAM-NEGATIVE SEPSIS, UNSPECIFIED Status: Acute Priority: High Current Visit: Yes - Problem List Review Problem List Initiated/Reviewed/Updated: Yes - My Orders Last 24 Hours: My Active Orders 05/31/18 11:00 Lactated Ringers [Ringers, Lactated] 1,000 ml IV ASDIRECTED 05/31/18 Lunch Full Liquid Diet [DIET] 06/01/18 06:55 EKG 12 Lead [EKG Documentation Completion] [RC] STAT 06/01/18 08:00 Pancrelipase/Creon 2 tab PO TIDMEALS 06/01/18 08:30 Magnesium Sulfate/Water [Magnesium Sulfate 2 GM in Water 50 ML] 2 gm Premix Bag 1 bag IV ONETIME Potassium Chloride [KCl 10 MEQ in Water 100 ML] 10 meq Premix Bag 1 bag IV Q1H 06/01/18 08:34 Incentive Spirometry [RT Incentive Spirometry] [RC] ASDIRECTED 06/02/18 05:11 CBC W/O DIFF,HEMOGRAM [HEME] DAILY RENAL FUNCTION PANEL,RFP [CHEM] DAILY - Plan Plan:: #Acute hypoxia: patient with O2 saturation in the mid-upper 80s on room air. Improved to 90s with 2L of O2 via NC. - Physical exam benign. - CT Chest, abdomen, and pelvis with no PE or infiltrate. - Now saturating well on room air. - Incentive spirometer ordered. - Encouraged to ambulate. #Acute recurrent pancreatitis: Pain is improved. but patient was nauseous with food overnight. CT abdomen shows pancreatitis is persistent. - NPO for now but can advance to clears when patient is ready. - Anti-emetic protocol - LR - Continue PO oxycodone 5 mg q6 hours. - Smoking and alcohol cessation counseling provided # Sepsis: unspecified source. UA negative. Bcx positive for Staph hominis in 1/ 2 bottles which is likely a contaminant. - Discontinue Rocephin - IV fluids as above - Repeat blood cultures negative to date. # Hypomagnesemia: -Monitor and replace #Hyponatremia: Resolved. Likely hypovolemic. - MOnitor BMP. # Tobacco use disorder: - Wants to quit - Counseling provided - Nicotine patch. #Continue other home medications that have been ordered. #Acute anemia + drop in platelets: likely hemodilutional. No concern for HIT at this time. - Monitor CBC. Code status: DNR/DNI DVT ppx: heparin GI PPx: Protonix
[2018-06-01] MEDS: Ondansetron 4 MG/2 ML SDV IVPUSH PRN (08:59)
[2018-06-01] MEDS: Pantoprazole 40 MG Vial IVPUSH SCH (09:01)
[2018-06-01] MEDS: CREON PO SCH ×3 (09:11→17:28)
[2018-06-01] MEDS: Nicotine 21 MG/24 Hr Patch TRDERM SCH (09:11)
[2018-06-01] MEDS: PANCRELIPASE PO SCH ×3 (09:11→17:28)
[2018-06-01] MEDS: Potassium Chloride 10 MEQ in Premix Bag 1 BAG IV SCH ×4 (10:52→14:04)
[2018-06-02] MEDS: Lactated Ringers 1,000 ML IV SCH (00:39)
[2018-06-02] MEDS: oxyCODONE 5 MG Tab PO PRN (02:18)
[2018-06-02] MEDS ORDERED: Lactated Ringers 1,000 ML IV SCH (02:24)
[2018-06-02] MEDS ORDERED: Acetaminophen 325 MG Tab PO PRN (02:27)
[2018-06-02] MEDS ORDERED: Furosemide 20 MG/2 ML VIAL IVPUSH ONE (03:25)
[2018-06-02] MEDS: Heparin Sodium 5,000 Units/ML Vial SUBCUT SCH ×4 (06:15→22:14)
[2018-06-02 07:02] LABS: ANION GAP 16.1
[2018-06-02] MEDS: Nicotine 21 MG/24 Hr Patch TRDERM SCH (08:20)
[2018-06-02] MEDS: Pantoprazole 40 MG Vial IVPUSH SCH (08:24)
[2018-06-02] MEDS: CREON PO SCH ×3 (10:15→17:38)
[2018-06-02] MEDS: PANCRELIPASE PO SCH ×3 (10:15→17:38)
[2018-06-02] MEDS ORDERED: Furosemide 40 MG/4 ML VIAL IVPUSH ONE (10:49)
--- NOTE | 2018-06-02 10:56 | PCM.PN ---
- General Info Date of Service: 06/02/18 Admission Dx/Problem (Free Text): Admission Diagnosis/Problem Admission Diagnosis/Problem Acute pancreatitis Subjective Update: Patient found to be hypoxic during 2 am vitals. O2 saturation in the mid- 80s.Reports abdominal fullness and generalized swelling. States her pain is 1/ 10. States the nausea not recurred. Denies fevers, chills, chest pain, shortness of breath, or any new symptoms. Has been passing gas and having bowel movement. - Review of Systems Systems Review Comment:: As per subjective update above. - Patient Data Vitals - Most Recent: Last Vital Signs Temp 98.9 F 06/02/18 08:00 Pulse 87 06/02/18 08:00 Resp 22 H 06/02/18 08:00 BP 139/102 H 06/02/18 08:00 Pulse Ox 93 L 06/02/18 09:51 Weight - Most Recent: 168 lb 9.6 oz I&O - Last 24 Hours: Intake & Output 06/01/18 06/02/18 06/02/18 22:59 06:59 14:59 Intake Total 3150 583 Output Total 500 Balance 3150 -500 583 Lab Results Last 24 Hours: Laboratory Results - last 24 hr 06/02/18 06/02/18 Range/Units 06:25 06:25 WBC 9.5 (5.0-10.0) 10^3/uL RBC 3.54 L (4.2-5.4) 10^6/uL Hgb 11.6 L (12.0-16.0) g/dL Hct 34.4 L (37.0-47.0) % MCV 97.2 (80-100) fL MCH 32.8 (27.0-34.0) pg MCHC 33.7 (33.0-35.0) g/dL Plt Count 192 (150-450) 10^3/uL Sodium 137 (135-145) mmol/L Potassium 3.1 L (3.6-5.0) mmol/L Chloride 100 L (101-111) mmol/L Carbon Dioxide 24.0 (21.0-31.0) mmol/L Anion Gap 16.1 BUN 5 L (7-18) mg/dL Creatinine 1.7 H (0.6-1.3) mg/dL Est Cr Clr Drug Dosing 36.81 mL/min Estimated GFR (MDRD) 32 BUN/Creatinine Ratio 2.94 Glucose 91 (74-105) mg/dL Calcium 8.3 L (8.4-10.2) mg/dl Phosphorus 4.3 (2.5-4.6) mg/dL Albumin 2.9 L (3.2-5.5) g/dl [place] Results Last 24 Hours: Microbiology 05/28/18 18:48 Aerobic Blood Culture - Final Blood - Venous - Lab Draw Staph Hominis Ss Hominis Anaerobic Blood Culture - Preliminary NO GROWTH AFTER 4 DAYS 05/28/18 18:44 Aerobic Blood Culture - Preliminary Blood - Venous NO GROWTH AFTER 4 DAYS Anaerobic Blood Culture - Preliminary NO GROWTH AFTER 4 DAYS 05/30/18 13:00 Aerobic Blood Culture - Preliminary Blood - Venous - Lab Draw NO GROWTH AFTER 2 DAYS Anaerobic Blood Culture - Preliminary NO GROWTH AFTER 2 DAYS 05/30/18 12:53 Aerobic Blood Culture - Preliminary Blood - Venous NO GROWTH AFTER 2 DAYS Anaerobic Blood Culture - Preliminary NO GROWTH AFTER 2 DAYS Med Orders - Current: Current Medications Acetaminophen (Tylenol) 650 mg PO Q6H PRN PRN Reason: Pain Bisacodyl (Dulcolax) 5 mg PO DAILY PRN PRN Reason: Constipation Docusate Sodium (Colace) 100 mg PO BID PRN PRN Reason: Constipation Last Admin: 05/30/18 13:17 Dose: 100 mg Furosemide (Lasix) 20 mg IVPUSH NOW ONE Stop: 06/02/18 10:50 Heparin Sodium (Porcine) (Heparin Sodium) 5,000 units SUBCUT Q8HR [facility] Last Admin: 06/02/18 06:40 Dose: 5,000 units Sodium Chloride (Normal Saline) 1,000 mls @ 10 mls/hr IV ASDIRECTED [facility] Stop: 06/06/18 10:54 Nicotine (Habitrol) 21 mg TRDERM DAILY [facility] Last Admin: 06/02/18 08:20 Dose: 21 mg Patients Own ( Pancrelipase/Creon 2 Tab) 2 tab PO TIDMEALS [facility] Last Admin: 06/02/18 10:15 Dose: Not Given Ondansetron HCl (Zofran) 4 mg IVPUSH Q4H PRN PRN Reason: Nausea/Vomiting Last Admin: 06/01/18 08:59 Dose: 4 mg Oxycodone HCl (Oxycodone) 5 mg PO Q6H PRN PRN Reason: Pain >4 Last Admin: 06/02/18 02:18 Dose: 5 mg Pantoprazole Sodium (Protonix Iv) 40 mg IVPUSH DAILY [facility] Last Admin: 06/02/18 08:24 Dose: 40 mg Polyethylene Glycol (Miralax) 17 gm PO DAILY PRN PRN Reason: Constipation Promethazine HCl (Phenergan) 6.25 mg IM Q6H PRN PRN Reason: Nausea/Vomiting Senna/Docusate Sodium (Senna Plus) 1 tab PO BEDTIME PRN PRN Reason: Constipation Discontinued Medications Fentanyl (Sublimaze) 25 mcg IVPUSH Q3H PRN PRN Reason: Abdominal Pain Last Admin: 05/29/18 11:08 Dose: 25 mcg Fentanyl (Sublimaze) 50 mcg IVPUSH Q3H PRN PRN Reason: Pain (moderate 4-6) Last Admin: 05/30/18 08:39 Dose: 50 mcg Furosemide (Lasix) 20 mg IVPUSH NOW ONE Stop: 06/02/18 03:26 Last Admin: 06/02/18 03:36 Dose: 20 mg Hydromorphone HCl (Dilaudid) 1 mg IVPUSH ONETIME ONE Stop: 05/28/18 21:14 Last Admin: 05/28/18 21:31 Dose: 1 mg Lactated Ringer's (Ringers, Lactated) 1,000 mls @ 125 mls/hr IV ASDIRECTED [facility] Last Admin: 05/28/18 19:00 Dose: 125 mls/hr Lactated Ringer's (Ringers, Lactated) 1,000 mls @ 250 mls/hr IV ASDIRECTED [facility] Last Infusion: 06/01/18 16:25 Dose: Infused Piperacillin Sod/Tazobactam (Sod 3.375 gm/ Sodium Chloride) 100 mls @ 200 mls/ hr IV Q6H [facility] Last Infusion: 05/29/18 06:31 Dose: Infused Vancomycin HCl 1 gm/ Sodium (Chloride) 250 mls @ 166.667 mls/hr IV Q8H [facility] Last Admin: 05/31/18 11:17 Dose: Not Given Piperacillin Sod/Tazobactam (Sod 3.375 gm/ Sodium Chloride) 100 mls @ 200 mls/ hr IV Q6H [facility] Last Infusion: 05/31/18 05:56 Dose: Infused Ceftriaxone Sodium 2 mg/ (Sodium Chloride) 100 mls @ 200 mls/hr IV Q24H [facility] Last Admin: 05/31/18 11:50 Dose: Not Given Vancomycin HCl 1 gm/ Sodium (Chloride) 250 mls @ 166.667 mls/hr IV BID [facility] Lactated Ringer's (Ringers, Lactated) 1,000 mls @ 250 mls/hr IV ASDIRECTED [facility] Last Infusion: 06/02/18 02:42 Dose: 100 mls/hr Ceftriaxone Sodium 2 gm/ (Sodium Chloride) 100 mls @ 200 mls/hr IV Q24H [facility] Last Admin: 05/31/18 12:13 Dose: Not Given Ceftriaxone Sodium 2 gm/ (Sodium Chloride) 100 mls @ 200 mls/hr IV Q24H [facility] Last Admin: 05/31/18 12:19 Dose: 200 mls/hr Magnesium Sulfate 2 gm/ Premix 50 mls @ 25 mls/hr IV ONETIME ONE Stop: 06/01/18 10:29 Last Infusion: 06/01/18 11:25 Dose: Infused Potassium Chloride 10 meq/ (Premix) 100 mls @ 100 mls/hr IV Q1H [facility] Stop: 06/01/18 12:29 Last Infusion: 06/01/18 15:30 Dose: Infused Lactated Ringer's (Ringers, Lactated) 1,000 mls @ 100 mls/hr IV ASDIRECTED [facility] Iopamidol (Isovue-300 (61%)) 75 ml IVPUSH ONETIME ONE Stop: 05/28/18 21:15 Last Admin: 05/28/18 21:15 Dose: 75 ml Iopamidol (Isovue-370 (76%)) 100 ml IVPUSH ONETIME ONE Stop: 06/01/18 05:23 Last Admin: 06/01/18 06:00 Dose: 100 ml Promethazine HCl (Phenergan) 25 mg IM ONETIME ONE Stop: 05/28/18 18:17 Last Admin: 05/28/18 18:51 Dose: 25 mg Vancomycin HCl (Pharmacy To Dose - Vancomycin) 1 dose .XX ASDIRECTED [facility] - Exam General: Alert, Oriented HEENT: Pupils Equal, EOMI, Mucous Membr. Moist/[place] Neck: Supple Lungs: Crackles (Faint crackles in bilateral lower lung no. ) Cardiovascular: Regular Rate, Regular Rhythm, No Murmurs GI/Abdominal Exam: Normal Bowel Sounds, Soft, Distended (Mildly distended compared to time of presentation. ), Tender (Mild tenderness to palpation. ) Extremities: Normal Inspection, Normal Range of Motion, Non-Tender, No Pedal Edema, Other (Improved skin turgor compared to presentation. ) Peripheral Pulses: 2+: Radial (L), Radial (R), Dorsalis Pedis (L), Dorsalis Pedis (R) Skin: Warm, Dry, Intact Neurological: No New Focal Deficit Psy/Mental Status: Alert, Normal Affect, Normal Mood - Problem List & Annotations (1) Hyponatremia SNOMED Code(s): 81903595 Code(s): E87.1 - HYPO-OSMOLALITY AND HYPONATREMIA Status: Acute Current Visit: Yes (2) SIRS (systemic inflammatory response syndrome) SNOMED Code(s): 353939890 Code(s): R65.10 - SIRS OF NON-INFECTIOUS ORIGIN W/O ACUTE ORGAN DYSFUNCTION Status: Acute Current Visit: Yes (3) Tobacco use disorder SNOMED Code(s): 236243705 Code(s): F17.200 - NICOTINE DEPENDENCE, UNSPECIFIED, UNCOMPLICATED Status: Acute Current Visit: Yes (4) Alcohol abuse SNOMED Code(s): 06937173 Code(s): F10.10 - ALCOHOL ABUSE, UNCOMPLICATED Status: Acute Current Visit: Yes (5) Marijuana abuse SNOMED Code(s): 42440470 Code(s): F12.10 - CANNABIS ABUSE, UNCOMPLICATED Status: Acute Current Visit: Yes (6) High anion gap metabolic acidosis SNOMED Code(s): 92480367 Code(s): E87.2 - ACIDOSIS Status: Acute Current Visit: Yes (7) Hypomagnesemia SNOMED Code(s): 810326534 Code(s): E83.42 - HYPOMAGNESEMIA Status: Acute Current Visit: Yes (8) Pancreatitis SNOMED Code(s): 28358941 Code(s): K85.9 - ACUTE PANCREATITIS, UNSPECIFIED * DO NOT USE * Status: Acute Priority: High Current Visit: Yes (9) Sepsis due to Gram negative bacteria SNOMED Code(s): 601884818 Code(s): A41.50 - GRAM-NEGATIVE SEPSIS, UNSPECIFIED Status: Acute Priority: High Current Visit: Yes - Problem List Review Problem List Initiated/Reviewed/Updated: Yes - My Orders Last 24 Hours: My Active Orders 06/02/18 02:27 Acetaminophen [Tylenol] 650 mg PO Q6H PRN 06/02/18 10:49 Furosemide [Lasix] 20 mg IVPUSH NOW ONE 06/02/18 10:54 LIPASE [CHEM] Routine 06/02/18 11:00 Sodium Chloride 0.9% [Normal Saline] 1,000 ml IV ASDIRECTED 06/02/18 Breakfast Regular Diet [DIET] - Plan Plan:: #Acute hypoxia: patient with O2 saturation in the mid-upper 80s on room air. Improved to 90s with 2L of O2 via NC. CXR showed small bilateral pleural effusions. Diuresed about 2 liters after receiving 2o mg of IV lasix - Has fine crackles in bilateral lower lung no. - Now [id number]% on room air. - Incentive spirometer - Supplemental O2, titrate to SpO2 of 90-94% - Encouraged to ambulate. - Repeat dose of IV lasix 20 mg x1 #Acute recurrent pancreatitis: Pain is improved. but patient was nauseous with food overnight. CT abdomen/pelvis on 06/01 showed pancreatitis is persistent. - Anti-emetic protocol - LR held for now - Continue PO oxycodone 5 mg q6 hours. - Added tylenol for pain overnight. - Smoking and alcohol cessation counseling provided # Sepsis: unspecified source. UA negative. Bcx positive for Staph hominis in 1/ 2 bottles which is likely a contaminant. - Repeat blood cultures negative to date. # Hypomagnesemia: -Monitor and replace #Hyponatremia: Resolved. Likely hypovolemic. - Monitor BMP. # Tobacco use disorder: - Wants to quit - Counseling provided - Nicotine patch. #Continue other home medications that have been ordered. #Acute anemia + drop in platelets: likely hemodilutional. No concern for HIT at this time. - Monitor CBC. Code status: DNR/DNI DVT ppx: heparin GI PPx: Protonix
[2018-06-02] MEDS ORDERED: Sodium Chloride 0.9% 1,000 ML IV SCH (11:00)
[2018-06-02] MEDS ORDERED: Potassium Chloride 10 MEQ Tab.ER PO ONE (17:32)
[2018-06-03] MEDS: Heparin Sodium 5,000 Units/ML Vial SUBCUT SCH (06:05)
[2018-06-03 06:33] LABS: ANION GAP 15.3
[2018-06-03 08:12] VITALS: BP 136/84
[2018-06-03] MEDS: Pantoprazole 40 MG Vial IVPUSH SCH (08:20)
[2018-06-03] MEDS: Nicotine 21 MG/24 Hr Patch TRDERM SCH (08:21)
[2018-06-03] MEDS: CREON PO SCH (08:22)
[2018-06-03] MEDS: PANCRELIPASE PO SCH (08:22)
[2018-06-03] MEDS ORDERED: Potassium Chloride 10 MEQ Tab.ER PO SCH (08:45)
--- NOTE | 2018-06-03 10:34 | PCM.DCSUM1 ---
Discharge Summary - Hospital Course Free Text/Narrative:: Ms. Marquez is a 47 y .o female with medical history significant for recurrent pancreatitis s/p multiple ERCPs and stent placements, tobacco use disorder, who presented to the ED with complaints of 8/10, sharp, constant abdominal pain who was admitted for acute recurrent pancreatitis. She was placed on IVF. She was started on vancomycin and zosyn for probable sepsis with fever, tachycardia , and tachypnea. She UA was negative. Blood cultures grew Staph hominis. Vancomycin was discontinued and she was started on ceftriaxone. Repeat blood culture was negative. Ceftriaxone was discontinued. She was noted to have have hypoxia. CT chest, abdomen, and pelvis was obtained. There was no PE. Pancreatitis was noted on the repeat CT. She was weaned off IV Pain medications to oxycodone. Last dose administered was 06/01. She was noted to have crackles and was given Lasix 20 mg IV x2 with improvement of her respiratory status. She was noted to have creatinine elevation. Went from 0.7 on presentation to 1.5 on 06/[address] was obtained. Cr went up to 1.8. Continued to have significant urine output. She was discharged home to follow up with Primary Care Provider. Appointment was made for her to follow up with Dr. Stratton on 06/10/2018 at [facility] with patient's permission. Diagnosis: Stroke: No - Discharge Data Discharge Date: 06/03/18 Discharge Disposition: Home, Self-Care 01 Condition: Stable - Discharge Diagnosis/Problem(s) (1) Hyponatremia SNOMED Code(s): 34040000 ICD Code: E87.1 - HYPO-OSMOLALITY AND HYPONATREMIA Status: Acute Current Visit: Yes (2) SIRS (systemic inflammatory response syndrome) SNOMED Code(s): 003205928 ICD Code: R65.10 - SIRS OF NON-INFECTIOUS ORIGIN W/O ACUTE ORGAN DYSFUNCTION Status: Acute Current Visit: Yes (3) Tobacco use disorder SNOMED Code(s): 053383203 ICD Code: F17.200 - NICOTINE DEPENDENCE, UNSPECIFIED, UNCOMPLICATED Status : Acute Current Visit: Yes (4) Alcohol abuse SNOMED Code(s): 21274848 ICD Code: F10.10 - ALCOHOL ABUSE, UNCOMPLICATED Status: Acute Current Visit: Yes (5) Marijuana abuse SNOMED Code(s): 65736616 ICD Code: F12.10 - CANNABIS ABUSE, UNCOMPLICATED Status: Acute Current Visit: Yes (6) High anion gap metabolic acidosis SNOMED Code(s): 91822870 ICD Code: E87.2 - ACIDOSIS Status: Acute Current Visit: Yes (7) Hypomagnesemia SNOMED Code(s): 415846730 ICD Code: E83.42 - HYPOMAGNESEMIA Status: Acute Current Visit: Yes (8) Pancreatitis SNOMED Code(s): 85744848 ICD Code: K85.9 - ACUTE PANCREATITIS, UNSPECIFIED * DO NOT USE * Status: Acute Priority: High Current Visit: Yes (9) Acute kidney injury SNOMED Code(s): 22133402 ICD Code: N17.9 - ACUTE KIDNEY FAILURE, UNSPECIFIED Status: Acute Current Visit: Yes (10) Hypoxia SNOMED Code(s): 078893632 ICD Code: R09.02 - HYPOXEMIA Status: Acute Priority: Medium Current Visit: Yes - Discharge Plan *PRESCRIPTION DRUG MONITORING PROGRAM REVIEWED*: No *COPY OF PRESCRIPTION DRUG MONITORING REPORT IN PATIENT [place]OR[place]: No Prescriptions/Med Rec: Magnesium Oxide 500 mg PO DAILY 7 Days #7 tablet Nicotine Polacrilex [Nicotine Gum] 2 mg BC Q2H PRN 14 Days #48 gum PRN Reason: Nicotine craving Potassium Chloride [Klor-Con 10] 40 meq PO DAILY #7 tab.er Varenicline Tartrate [Chantix] 1 mg PO ASDIRECTED 60 Days #120 tab.ds.pk Home Medications: Home Meds Omeprazole 20 mg PO DAILY 12/30/16 [History] Lipase/Protease/Amylase [Creon Dr 36,000 Units Capsule] 2 tab PO TIDMEALS [History] Magnesium Oxide 500 mg PO DAILY 7 Days #7 tablet 06/03/18 [Rx] Nicotine Polacrilex [Nicotine Gum] 2 mg BC Q2H PRN 14 Days #48 gum 06/03/18 [Rx] Potassium Chloride [Klor-Con 10] 40 meq PO DAILY #7 tab.er 06/03/18 [Rx] Varenicline Tartrate [Chantix] 1 mg PO ASDIRECTED 60 Days #120 tab.ds.pk [Rx] Patient Handouts: Steps to Quit Smoking, [id number], Acute Pancreatitis, Easy -to-Read, Hypokalemia, Sepsis, Adult Referrals: PCP,Unobtain [Primary Care Provider] - - Discharge Summary/Plan Comment DC Time >30 min.: Yes - General Info Date of Service: 06/03/18 Admission Dx/Problem (Free Text: Admission Diagnosis/Problem Admission Diagnosis/Problem Acute pancreatitis Subjective Update: No acute events overnight. Reports that she is breathing well on room air. States her pain is 3/10. States the nausea not recurred. Denies fevers, chills, chest pain, shortness of breath, or any new symptoms. Has been passing gas and having bowel movement. Functional Status: Reports: Pain Controlled Numeric/FACES Score: 3 - Review of Systems General: Reports: No Symptoms HEENT: Reports: No Symptoms Pulmonary: Reports: No Symptoms Cardiovascular: Reports: No Symptoms Gastrointestinal: Reports: Abdominal Pain Genitourinary: Reports: No Symptoms Musculoskeletal: Reports: No Symptoms Skin: Reports: No Symptoms Neurological: Reports: No Symptoms Psychiatric: Reports: No Symptoms - Patient Data Vitals - Most Recent: Last Vital Signs Temp 97.0 F 06/03/18 08:00 Pulse 71 06/03/18 08:00 Resp 18 06/03/18 08:00 BP 136/84 06/03/18 08:00 Pulse Ox 98 06/03/18 08:00 Weight - Most Recent: 164 lb 3.2 oz I&O - Last 24 hours: Intake & Output 06/02/18 06/03/18 06/03/18 22:59 06:59 14:59 Intake Total 400 650 Output Total 2275 1000 300 Balance -2275 -600 350 Lab Results - Last 24 hrs: Laboratory Results - last 24 hr 06/02/18 06/02/18 06/02/18 Range/Units 06:25 11:27 17:45 WBC (5.0-10.0) 10^3/uL RBC (4.2-5.4) 10^6/uL Hgb (12.0-16.0) g/dL Hct (37.0-47.0) % MCV (80-100) fL MCH (27.0-34.0) pg MCHC (33.0-35.0) g/dL Plt Count (150-450) 10^3/uL Sodium (135-145) mmol/L Potassium (3.6-5.0) mmol/L Chloride (101-111) mmol/L Carbon Dioxide (21.0-31.0) mmol/L Anion Gap BUN (7-18) mg/dL Creatinine (0.6-1.3) mg/dL Est Cr Clr Drug Dosing mL/min Estimated GFR (MDRD) Glucose (74-105) mg/dL Calcium (8.4-10.2) mg/dl Phosphorus (2.5-4.6) mg/dL Magnesium 1.6 L (1.8-2.5) mg/dL Lipase 23 (22-51) U/L Vancomycin Trough 10.6 (10-15) ug/ml 06/03/18 06/03/18 Range/Units 06:00 06:00 WBC 8.0 (5.0-10.0) 10^3/uL RBC 3.37 L (4.2-5.4) 10^6/uL Hgb 11.1 L (12.0-16.0) g/dL Hct 32.5 L (37.0-47.0) % MCV 96.4 (80-100) fL MCH 32.9 (27.0-34.0) pg MCHC 34.2 (33.0-35.0) g/dL Plt Count 205 (150-450) 10^3/uL Sodium 139 (135-145) mmol/L Potassium 3.3 L (3.6-5.0) mmol/L Chloride 100 L (101-111) mmol/L Carbon Dioxide 27.0 (21.0-31.0) mmol/L Anion Gap 15.3 BUN 7 (7-18) mg/dL Creatinine 1.8 H (0.6-1.3) mg/dL Est Cr Clr Drug Dosing 34.77 mL/min Estimated GFR (MDRD) 30 Glucose 98 (74-105) mg/dL Calcium 8.0 L (8.4-10.2) mg/dl Phosphorus 4.5 (2.5-4.6) mg/dL Magnesium 1.5 L (1.8-2.5) mg/dL Lipase (22-51) U/L Vancomycin Trough (10-15) ug/ml [facility] Results - Last 24 hrs: Microbiology 05/28/18 18:48 Aerobic Blood Culture - Final Blood - Venous - Lab Draw Staph Hominis Ss Hominis Anaerobic Blood Culture - Final NO GROWTH AFTER 5 DAYS 05/28/18 18:44 Aerobic Blood Culture - Final Blood - Venous NO GROWTH AFTER 5 DAYS Anaerobic Blood Culture - Final NO GROWTH AFTER 5 DAYS 05/30/18 13:00 Aerobic Blood Culture - Preliminary Blood - Venous - Lab Draw NO GROWTH AFTER 3 DAYS Anaerobic Blood Culture - Preliminary NO GROWTH AFTER 3 DAYS 05/30/18 12:53 Aerobic Blood Culture - Preliminary Blood - Venous NO GROWTH AFTER 3 DAYS Anaerobic Blood Culture - Preliminary NO GROWTH AFTER 3 DAYS Med Orders - Current: Current Medications Acetaminophen (Tylenol) 650 mg PO Q6H PRN PRN Reason: Pain Bisacodyl (Dulcolax) 5 mg PO DAILY PRN PRN Reason: Constipation Docusate Sodium (Colace) 100 mg PO BID PRN PRN Reason: Constipation Last Admin: 05/30/18 13:17 Dose: 100 mg Heparin Sodium (Porcine) (Heparin Sodium) 5,000 units SUBCUT Q8HR [facility] Last Admin: 06/03/18 06:05 Dose: 5,000 units Sodium Chloride (Normal Saline) 1,000 mls @ 10 mls/hr IV ASDIRECTED [facility] Stop: 06/06/18 10:54 Last Admin: 06/02/18 11:36 Dose: 10 mls/hr Magnesium Oxide (Magnesium Oxide) 500 mg PO BIDM [facility] Stop: 06/03/18 18:01 Last Admin: 06/03/18 08:20 Dose: 500 mg Nicotine (Habitrol) 21 mg TRDERM DAILY [facility] Last Admin: 06/03/18 08:21 Dose: 21 mg Patients Own ( Pancrelipase/Creon 2 Tab) 2 tab PO TIDMEALS [facility] Last Admin: 06/03/18 08:22 Dose: 2 tab Ondansetron HCl (Zofran) 4 mg IVPUSH Q4H PRN PRN Reason: Nausea/Vomiting Last Admin: 06/01/18 08:59 Dose: 4 mg Oxycodone HCl (Oxycodone) 5 mg PO Q6H PRN PRN Reason: Pain >4 Last Admin: 06/02/18 02:18 Dose: 5 mg Pantoprazole Sodium (Protonix Iv) 40 mg IVPUSH DAILY [facility] Last Admin: 06/03/18 08:20 Dose: 40 mg Polyethylene Glycol (Miralax) 17 gm PO DAILY PRN PRN Reason: Constipation Potassium Chloride (Klor-Con 10) 40 meq PO BIDMEALS [facility] Stop: 06/04/18 18:01 Last Admin: 06/03/18 08:54 Dose: 40 meq Promethazine HCl (Phenergan) 6.25 mg IM Q6H PRN PRN Reason: Nausea/Vomiting Senna/Docusate Sodium (Senna Plus) 1 tab PO BEDTIME PRN PRN Reason: Constipation Discontinued Medications Fentanyl (Sublimaze) 25 mcg IVPUSH Q3H PRN PRN Reason: Abdominal Pain Last Admin: 05/29/18 11:08 Dose: 25 mcg Fentanyl (Sublimaze) 50 mcg IVPUSH Q3H PRN PRN Reason: Pain (moderate 4-6) Last Admin: 05/30/18 08:39 Dose: 50 mcg Furosemide (Lasix) 20 mg IVPUSH NOW ONE Stop: 06/02/18 03:26 Last Admin: 06/02/18 03:36 Dose: 20 mg Furosemide (Lasix) 20 mg IVPUSH NOW ONE Stop: 06/02/18 10:50 Last Admin: 06/02/18 11:36 Dose: 20 mg Hydromorphone HCl (Dilaudid) 1 mg IVPUSH ONETIME ONE Stop: 05/28/18 21:14 Last Admin: 05/28/18 21:31 Dose: 1 mg Lactated Ringer's (Ringers, Lactated) 1,000 mls @ 125 mls/hr IV ASDIRECTED [facility] Last Admin: 05/28/18 19:00 Dose: 125 mls/hr Lactated Ringer's (Ringers, Lactated) 1,000 mls @ 250 mls/hr IV ASDIRECTED [facility] Last Infusion: 06/01/18 16:25 Dose: Infused Piperacillin Sod/Tazobactam (Sod 3.375 gm/ Sodium Chloride) 100 mls @ 200 mls/ hr IV Q6H [facility] Last Infusion: 05/29/18 06:31 Dose: Infused Vancomycin HCl 1 gm/ Sodium (Chloride) 250 mls @ 166.667 mls/hr IV Q8H [facility] Last Admin: 05/31/18 11:17 Dose: Not Given Piperacillin Sod/Tazobactam (Sod 3.375 gm/ Sodium Chloride) 100 mls @ 200 mls/ hr IV Q6H [facility] Last Infusion: 05/31/18 05:56 Dose: Infused Ceftriaxone Sodium 2 mg/ (Sodium Chloride) 100 mls @ 200 mls/hr IV Q24H [facility] Last Admin: 05/31/18 11:50 Dose: Not Given Vancomycin HCl 1 gm/ Sodium (Chloride) 250 mls @ 166.667 mls/hr IV BID [facility] Lactated Ringer's (Ringers, Lactated) 1,000 mls @ 250 mls/hr IV ASDIRECTED [facility] Last Infusion: 06/02/18 02:42 Dose: 100 mls/hr Ceftriaxone Sodium 2 gm/ (Sodium Chloride) 100 mls @ 200 mls/hr IV Q24H [facility] Last Admin: 05/31/18 12:13 Dose: Not Given Ceftriaxone Sodium 2 gm/ (Sodium Chloride) 100 mls @ 200 mls/hr IV Q24H [facility] Last Admin: 05/31/18 12:19 Dose: 200 mls/hr Magnesium Sulfate 2 gm/ Premix 50 mls @ 25 mls/hr IV ONETIME ONE Stop: 06/01/18 10:29 Last Infusion: 06/01/18 11:25 Dose: Infused Potassium Chloride 10 meq/ (Premix) 100 mls @ 100 mls/hr IV Q1H [facility] Stop: 06/01/18 12:29 Last Infusion: 06/01/18 15:30 Dose: Infused Lactated Ringer's (Ringers, Lactated) 1,000 mls @ 100 mls/hr IV ASDIRECTED [facility] Iopamidol (Isovue-300 (61%)) 75 ml IVPUSH ONETIME ONE Stop: 05/28/18 21:15 Last Admin: 05/28/18 21:15 Dose: 75 ml Iopamidol (Isovue-370 (76%)) 100 ml IVPUSH ONETIME ONE Stop: 06/01/18 05:23 Last Admin: 06/01/18 06:00 Dose: 100 ml Potassium Chloride (Klor-Con 10) 40 meq PO ONETIME ONE Stop: 06/02/18 17:33 Last Admin: 06/02/18 18:00 Dose: 40 meq Promethazine HCl (Phenergan) 25 mg IM ONETIME ONE Stop: 05/28/18 18:17 Last Admin: 05/28/18 18:51 Dose: 25 mg Vancomycin HCl (Pharmacy To Dose - Vancomycin) 1 dose .XX ASDIRECTED [facility] - Exam General: Reports: Alert, Oriented HEENT: Reports: Pupils Equal, Pupils Reactive, EOMI, Mucous Membr. Moist/[place] Neck: Reports: Supple Lungs: Reports: Clear to Auscultation, Normal Respiratory Effort Cardiovascular: Reports: Regular Rate, Regular Rhythm GI/Abdominal Exam: Normal Bowel Sounds, Soft, Tender (Mild lower abdominal tenderness to palpation) Extremities: Normal Inspection, Normal Range of Motion, Non-Tender, No Pedal Edema Skin: Reports: Warm, Dry Neurological: Reports: No New Focal Deficit Psy/Mental Status: Reports: Alert, Normal Affect
--- NOTE | 2018-06-03 13:18 | EKG ---
06/01/2018 - KIARRA BUCKLEY - EKG shows sinus rhythm with heart rate of 64. Normal axis. Poor R-wave progression. No ST elevation or depression. No Q-wave inversions. QTc of 436. [facility] /[id number]
== END 2018-06-03 11:40 | disposition home or self-care (01) | DRG 282 ==
LOC: DL.ED 17:35 → UNDOADMIN 21:47 → DL.MS 21:47
PROVIDERS: ADMIT Internal Medicine; ATTEND Internal Medicine
DX: K85.90 Acute pancreatitis without necrosis or infection, unspecified (principal); F17.210 Nicotine dependence, cigarettes, uncomplicated; K21.9 Gastro-esophageal reflux disease without esophagitis; N17.0 Acute kidney failure with tubular necrosis; E87.1 Hypo-osmolality and hyponatremia; E87.2 Acidosis; R09.02 Hypoxemia; Z66 Do not resuscitate; D64.9 Anemia, unspecified; E83.42 Hypomagnesemia; F10.10 Alcohol abuse, uncomplicated; F12.10 Cannabis abuse, uncomplicated; Z98.890 Other specified postprocedural states; Z79.899 Other long term (current) drug therapy
CPT/HCPCS: 36415; 71046; 71260; 74177; 80048; 80053; 80069; 80076; 80202; 81001; 81025; 82140; 82150; 83605; 83690; 83735; 84100; 84484; 85025; 85027; 87040; 87077; 87186; 93005; 96361; 96374; 99285; A9270-GY; C9113; J0696; J1170; J1644; J1940; J2405; J2543; J2550; J3010; J3370; J3475; J3480; J7030; J7050; J7120; Q9967

== ENCOUNTER 2019-09-07 12:43 | Emergency (ER) | payer BC ==
[2019-09-07 12:57] VITALS: BP 139/86; PULSE 97
[2019-09-07] MEDS ORDERED: Sodium Chloride 0.9% 10 ML Syringe FLUSH PRN (13:04)
[2019-09-07] MEDS ORDERED: Lactated Ringers 1,000 ML IV ONE (13:05)
[2019-09-07] MEDS ORDERED: Ondansetron 4 MG/2 ML SDV IV ONE ×2 (13:06→14:04)
[2019-09-07] MEDS ORDERED: Pantoprazole 40 MG Vial IVPUSH ONE (13:06)
--- NOTE | 2019-09-07 13:09 | EDM.PDOC ---
ED HPI GENERAL MEDICAL PROBLEM - General Chief Complaint: Abdominal Pain Stated Complaint: THROWING UP BLACK STUFF/FEVER OF 99 Time Seen by Provider: 09/07/19 13:00 Source of Information: Reports: Patient, Old Records, RN, RN Notes Reviewed History Limitations: Reports: No Limitations - History of Present Illness INITIAL COMMENTS - FREE TEXT/NARRATIVE: Pt presents to ER from home by POV with c/o two weeks duration of epigastric abdominal pain and burning with nausea and vomiting. The pain radiates around both sides and straight through to the back. Also pt reports both acid burning and pressure radiating up the midline chest from the "stomach" to the back of her throat. Today she reports that her vomit turned black. Denies bloody or coffee ground emesis. Denies diarrhea, constipation, bloody, black, or tarry stool. Denies lightheadedness, dizziness, syncope, or shortness of breath. Pt has Hx of chronic pancreatitis which has been much better since having ERCP and stents at [facility] about 2 years ago. Onset: Gradual Duration: Constant, Getting Worse Location: Reports: Chest, Abdomen, Back Quality: Reports: Ache, Burning, Pressure Severity: Severe Improves with: Reports: None Worsens with: Reports: Eating Associated Symptoms: Reports: No Other Symptoms Chest Pain Score (Numeric/FACES): 9 - Related Data Allergies Allergy/AdvReac Type Severity Reaction Status Date / Time No Known Allergies Allergy Verified 09/07/19 12:53 Home Meds: Home Meds Omeprazole 20 mg PO DAILY 12/30/16 [History] Lipase/Protease/Amylase [Travis Saavedra 36,000 Units Capsule] 2 tab PO TIDMEALS [History] Magnesium Oxide 500 mg PO DAILY 7 Days #7 tablet 06/03/18 [Rx] Nicotine Polacrilex [Nicotine Gum] 2 mg BC Q2H PRN 14 Days #48 gum 06/03/18 [Rx] Potassium Chloride [Klor-Con 10] 40 meq PO DAILY #7 tab.er 06/03/18 [Rx] Varenicline Tartrate [Chantix] 1 mg PO ASDIRECTED 60 Days #120 tab.ds.pk [Rx] Past Medical History HEENT History: Reports: Other (See Below) Other HEENT History: Wears glasses for corrected vision. Cardiovascular History: Reports: None Respiratory History: Reports: None Other Respiratory History: Smoker at this time. 1 pack per day. 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: Musculoskeletal History: Reports: Back Pain, Chronic Neurological History: Reports: None Psychiatric History: Reports: None Endocrine/Metabolic History: Reports: None Hematologic History: Reports: None Immunologic History: Reports: None Oncologic (Cancer) History: Reports: None Dermatologic History: Reports: None - Infectious Disease History Infectious Disease History: Reports: Chicken Pox - Past Surgical History Head Surgeries/Procedures: Reports: None HEENT Surgical History: Reports: None Cardiovascular Surgical History: Reports: None Respiratory Surgical History: Reports: None GI Surgical History: Reports: ERCP (with pancreatic stent) Female Surgical History: Reports: Section, Other (See Below) Other Female Surgeries/Procedures: tubes tied Musculoskeletal Surgical History: Reports: Other (See Below) Other Musculoskeletal Surgeries/Procedures:: Right rotator cuff repair. Social & Family History - Family History Family Medical History: Noncontributory HEENT: Reports: None Cardiac: Reports: None Other Respiratory Family Hisory: Father from lung cancer. GI: Reports: None : Reports: Other (See Below) Other Family History: Mom had kidney surgery. Musculoskeletal: Reports: Arthritis Oncologic: Reports: Lung - Tobacco Use Smoking Status *Q: Heavy Tobacco Smoker Tobacco Use Within Last Twelve Months: Cigarettes Years of Tobacco use: 35 Packs/Tins Daily: 1 - Caffeine Use Caffeine Use: Reports: Coffee - Alcohol Use Alcohol Use History: Yes Alcohol Use Frequency: Patient Refused to Answer - Recreational Drug Use Recreational Drug Use: Yes Recreational Drug Type: Reports: Marijuana/Hashish Recreational Drug Use Frequency: Patient Refuses To Answer - Living Situation & Occupation Living situation: Reports: with Family ED ROS GENERAL - Review of Systems Review Of Systems: Comprehensive ROS is negative, except as noted in HPI. ED EXAM, GI/ABD - Physical Exam Exam: See Below Exam Limited By: No Limitations General Appearance: Alert, No Apparent Distress, Anxious, Other (Chronically ill and unkept appearing). No: Active Emesis Eyes: Bilateral: Normal Appearance (No scleral icterus) Nose: Normal Inspection, Normal Mucosa, No Blood Throat/Mouth: Normal Lips, Normal Oropharynx, Normal Voice, No Airway Compromise , Other (Dry oral mucosa) Head: Atraumatic, Normocephalic Neck: Normal Inspection, Supple, Non-Tender, Full Range of Motion Respiratory/Chest: No Respiratory Distress, Lungs Clear, Normal Breath Sounds, No Accessory Muscle Use, Chest Non-Tender Cardiovascular: Normal Peripheral Pulses, Regular Rate, Rhythm, No Edema, No Gallop, No JVD, No Murmur, No Rub GI/Abdominal Exam: Normal Bowel Sounds, Soft, No Organomegaly, No Distention, No Abnormal Bruit, Guarding (epigastric), Tender (epigastric region). No: Rigid , Rebound (Female) Exam: Deferred Rectal (Female) Exam: Deferred Back Exam: Normal Inspection, Full Range of Motion. No: CVA Tenderness (L), CVA Tenderness (R), Vertebral Tenderness Extremities: Normal Inspection, Normal Range of Motion, Non-Tender, Normal Capillary Refill, No Pedal Edema Neurological: Alert, Oriented, CN II-XII Intact, Normal Cognition, Normal Gait, No Motor/Sensory Deficits Psychiatric: Anxious Skin Exam: Warm, Dry, Intact, Normal Color, No Rash. No: Cyanosis, Ecchymosis, Jaundice, Pallor, Petechiae, Rash EKG INTERPRETATION EKG Date: 09/07/19 Time: 13:13 Rhythm: Other (SR) Rate (Beats/Min): 68 [place]: Normal P-Wave: Present QRS: Other (small inferior Q waves) ST-T: Other (inverted T waves in V1 and V2, no acute ST-T elevation or depressions.) QT: Normal Comparison: NA - No Prior EKG Course - Vital Signs Last Recorded V/S: Last Vital Signs Temp 98.4 F 09/07/19 12:54 Pulse 97 09/07/19 12:54 Resp 18 09/07/19 12:54 BP 139/86 09/07/19 12:54 Pulse Ox 97 09/07/19 12:54 - Orders/Labs/Meds Orders: Active Orders 24 hr Category Date Time Status EKG 12 Lead [EKG Documentation Completion] [RC] STAT Care 09/07/19 13:05 Active Peripheral IV Care [RC] . DIRECTED Care 09/07/19 13:05 Active INR,PT,PROTHROMBIN TIME [COAG] Stat Lab 09/07/19 13:11 Received PTT,PARTIAL THROMBOPLSTIN TIME [COAG] Stat Lab 09/07/19 13:11 Received Sodium Chloride 0.9% [Saline Flush] Med 09/07/19 13:04 Active 10 ml FLUSH ASDIRECTED PRN Peripheral IV Insertion Adult [OM.PC] Stat Oth 09/07/19 13:05 Ordered Medication Orders Sodium Chloride (Saline Flush) 10 ml FLUSH ASDIRECTED PRN PRN Reason: Keep Vein Open Last Admin: 09/07/19 13:19 Dose: 10 ml Labs: Laboratory Tests 09/07/19 09/07/19 09/07/19 Range/Units 13:11 13:11 13:28 WBC 16.1 H (5.0-10.0) 10^3/uL RBC 4.18 L (4.2-5.4) 10^6/uL Hgb 13.9 D (12.0-16.0) g/dL Hct 39.7 (37.0-47.0) % MCV 95.0 (80-100) fL MCH 33.3 (27.0-34.0) pg MCHC 35.0 (33.0-35.0) g/dL Plt Count 445 D (150-450) 10^3/uL Neut % (Auto) 85.5 H (42.2-75.2) % Lymph % (Auto) 7.9 L (20.5-50.1) % [place] % (Auto) 6.2 (2-8) % Eos % (Auto) 0.1 L (1.0-3.0) % Baso % (Auto) 0.3 (0.0-1.0) % Sodium 132 L (136-145) mmol/L Potassium 4.3 (3.5-5.1) mmol/L Chloride 94 L (98-107) mmol/L Carbon Dioxide 25 (21-32) mmol/L Anion Gap 17.3 H (7-13) mEq/L BUN 10 (7-18) mg/dL Creatinine 0.90 (0.55-1.02) mg/dL Est Cr Clr Drug Dosing 68.04 mL/min Estimated GFR (MDRD) > 60 BUN/Creatinine Ratio 11.1 (No establ ref range) Glucose 132 H (74-99) mg/dL Calcium 9.4 (8.5-10.1) mg/dL Magnesium 1.7 L (1.8-2.4) mg/dL Total Bilirubin 0.6 (0.2-1.0) mg/dL AST 13 L (15-37) U/L ALT 18 (14-59) U/L Alkaline Phosphatase 78 (46-116) U/L Troponin I < 0.017 (0.000-0.056) ng/mL Total Protein 8.2 (6.4-8.2) g/dL Albumin 3.9 (3.4-5.0) g/dL Globulin 4.3 Albumin/Globulin Ratio 0.9 Amylase 58 (25-115) U/L Lipase 309 (73-393) U/L Urine Color Dark yellow (YELLOW) Urine Appearance Slightly cloudy (CLEAR) Urine pH 5.5 (5.0-9.0) Ur Specific [place] >= 1.030 (1.005-1.030) Urine Protein 100 H (NEGATIVE) Urine Glucose (UA) Negative (NEGATIVE) Urine Ketones 40 H (NEGATIVE) Urine Occult Blood Negative (NEGATIVE) Urine Nitrite Negative (NEGATIVE) Urine Bilirubin Moderate H (NEGATIVE) Urine Urobilinogen 0.2 (0.2-1.0) mg/dL Ur Leukocyte Esterase Negative (NEGATIVE) U Hyaline Cast (Auto) Few Urine RBC Not seen /HPF Urine WBC 0-5 (0-5/HPF) /HPF Ur Epithelial Cells Moderate H (NOT SEEN) /HPF Amorphous Sediment Moderate H (NOT SEEN) /HPF Urine Bacteria Rare (0-FEW/HPF) /HPF Urine Mucus Many H (NOT SEEN) /LPF Urine Opiates Screen (NEGATIVE) Ur Oxycodone Screen (NEGATIVE) Urine Methadone Screen (NEGATIVE) Ur Barbiturates Screen (NEGATIVE) U Tricyclic Antidepress (NEGATIVE) Ur Phencyclidine Scrn (NEGATIVE) Ur Amphetamine Screen (NEGATIVE) U Methamphetamines Scrn (NEGATIVE) Urine MDMA Screen (NEGATIVE) U Benzodiazepines Scrn (NEGATIVE) Urine Cocaine Screen (NEGATIVE) U Marijuana (THC) Screen (NEGATIVE) Ethyl Alcohol < 3 (0) mg/dL 09/07/19 Range/Units 13:28 WBC (5.0-10.0) 10^3/uL RBC (4.2-5.4) 10^6/uL Hgb (12.0-16.0) g/dL Hct (37.0-47.0) % MCV (80-100) fL MCH (27.0-34.0) pg MCHC (33.0-35.0) g/dL Plt Count (150-450) 10^3/uL Neut % (Auto) (42.2-75.2) % Lymph % (Auto) (20.5-50.1) % [place] % (Auto) (2-8) % Eos % (Auto) (1.0-3.0) % Baso % (Auto) (0.0-1.0) % Sodium (136-145) mmol/L Potassium (3.5-5.1) mmol/L Chloride (98-107) mmol/L Carbon Dioxide (21-32) mmol/L Anion Gap (7-13) mEq/L BUN (7-18) mg/dL Creatinine (0.55-1.02) mg/dL Est Cr Clr Drug Dosing mL/min Estimated GFR (MDRD) BUN/Creatinine Ratio (No establ ref range) Glucose (74-99) mg/dL Calcium (8.5-10.1) mg/dL Magnesium (1.8-2.4) mg/dL Total Bilirubin (0.2-1.0) mg/dL AST (15-37) U/L ALT (14-59) U/L Alkaline Phosphatase (46-116) U/L Troponin I (0.000-0.056) ng/mL Total Protein (6.4-8.2) g/dL Albumin (3.4-5.0) g/dL Globulin Albumin/Globulin Ratio Amylase (25-115) U/L Lipase (73-393) U/L Urine Color (YELLOW) Urine Appearance (CLEAR) Urine pH (5.0-9.0) Ur Specific [place] (1.005-1.030) Urine Protein (NEGATIVE) Urine Glucose (UA) (NEGATIVE) Urine Ketones (NEGATIVE) Urine Occult Blood (NEGATIVE) Urine Nitrite (NEGATIVE) Urine Bilirubin (NEGATIVE) Urine Urobilinogen (0.2-1.0) mg/dL Ur Leukocyte Esterase (NEGATIVE) U [place] (Auto) Urine RBC /HPF Urine WBC (0-5/HPF) /HPF Ur Epithelial Cells (NOT SEEN) /HPF Amorphous Sediment (NOT SEEN) /HPF Urine Bacteria (0-FEW/HPF) /HPF Urine Mucus (NOT SEEN) /LPF Urine Opiates Screen Positive H (NEGATIVE) Ur Oxycodone Screen Positive H (NEGATIVE) Urine Methadone Screen Negative (NEGATIVE) Ur Barbiturates Screen Negative (NEGATIVE) U Tricyclic Antidepress Negative (NEGATIVE) Ur Phencyclidine Scrn Negative (NEGATIVE) Ur Amphetamine Screen Negative (NEGATIVE) U Methamphetamines Scrn Negative (NEGATIVE) Urine MDMA Screen Negative (NEGATIVE) U Benzodiazepines Scrn Negative (NEGATIVE) Urine Cocaine Screen Negative (NEGATIVE) U Marijuana (THC) Screen Positive H (NEGATIVE) Ethyl Alcohol (0) mg/dL Meds: Medications Generic Name Dose Route Start Last Admin Trade Name Freq PRN Reason Stop Dose Admin Sodium Chloride 10 ml 09/07/19 13:04 09/07/19 13:19 Saline Flush FLUSH 10 ml ASDIRECTED PRN Administration Keep Vein Open Discontinued Medications Generic Name Dose Route Start Last Admin Trade Name Freq PRN Reason Stop Dose Admin Hydromorphone HCl 0.5 mg 09/07/19 14:05 Dilaudid IVPUSH 09/07/19 14:06 ONETIME ONE Lactated Ringer's 1,000 mls @ 999 mls/hr 09/07/19 13:05 09/07/19 13:19 Ringers, Lactated IV 09/07/19 14:05 999 mls/hr .BOLUS ONE Administration Ondansetron HCl 4 mg 09/07/19 13:06 09/07/19 13:19 Zofran IV 09/07/19 13:07 4 mg ONETIME ONE Administration Ondansetron HCl 4 mg 09/07/19 14:04 Zofran IV 09/07/19 14:05 ONETIME ONE Pantoprazole Sodium 80 mg 09/07/19 13:06 09/07/19 13:19 Protonix Iv IVPUSH 09/07/19 13:07 80 mg .BOLUS ONE Administration Sucralfate 1 gm 09/07/19 14:04 Carafate PO 09/07/19 14:05 ONETIME ONE - Radiology Interpretation Free Text/Narrative:: XR Chest: no acute process per Rad. report. - Re-Assessments/Exams Free Text/Narrative Re-Assessment/Exam: 09/07/19 14:07 I discussed the pt's case, exam findings, and lab/X-ray results with pt's PCP June Bassett NP via phone. Pt was seen in clinic for the same complaint 2 weeks ago , and has not returned to clinic for follow up. Pt has a fairly benign exam today. Her WBC is 16.1 without any source of infection identified. Pt was dishonest with me about not having any pain medications. She received a Hydrocodone Rx from her clinic visit 2 weeks ago, and at that time admitted to using her husbands Oxycodone. Today her urine was Oxycodone positive. I find no indication for treatment with outpatient narcotic/opiate prescription medication at today's ER visit, and had declined her request for more pain medication. I have advised her to f/u in clinic this week for further evaluation and recheck of her labs. Departure - Departure Time of Disposition: 14:12 Disposition: Home, Self-Care 01 Condition: Good Clinical Impression: Non-cardiac chest pain Abdominal pain Qualifiers: Abdominal location: epigastric Qualified Code(s): R10.13 - Epigastric pain Nausea & vomiting Qualifiers: Vomiting type: unspecified Vomiting Intractability: non-intractable Qualified Code(s): R11.2 - Nausea with vomiting, unspecified - Discharge Information *PRESCRIPTION DRUG MONITORING PROGRAM REVIEWED*: No *COPY OF PRESCRIPTION DRUG MONITORING REPORT IN PATIENT [place]: No Instructions: Abdominal Pain, Adult, Nausea and Vomiting, Adult, [id number], Nonspecific Chest Pain, Adult, [id number], Gastritis, Adult Forms: ED Department Discharge Additional Instructions: Rx: Carafate 1g Rx: Zofran 4mg Continue Omeprazole as prescribed. Abstain from spicy food, alcohol, tobacco/nicotine, and acidic foods. Follow up in clinic with Gerber Bassett this week for recheck of your symptoms and labs. Sepsis Event Note - Evaluation Sepsis Screening Result: No Definite Risk - Focused Exam Vital Signs: Vital Signs Temp Pulse Resp BP Pulse Ox 09/07/19 12:54 98.4 F 97 18 139/86 97 Date Exam was Performed: 09/07/19 Time Exam was Performed: 14:07 - My Orders Last 24 Hours: My Active Orders 09/07/19 13:04 Sodium Chloride 0.9% [Saline Flush] 10 ml FLUSH ASDIRECTED PRN 09/07/19 13:05 EKG 12 Lead [EKG Documentation Completion] [RC] STAT Peripheral IV Care [RC] . DIRECTED Peripheral IV Insertion Adult [OM.PC] Stat 09/07/19 13:11 INR,PT,PROTHROMBIN TIME [COAG] Stat PTT,PARTIAL THROMBOPLSTIN TIME [COAG] Stat - Assessment/Plan Last 24 Hours: My Active Orders 09/07/19 13:04 Sodium Chloride 0.9% [Saline Flush] 10 ml FLUSH ASDIRECTED PRN 09/07/19 13:05 EKG 12 Lead [EKG Documentation Completion] [RC] STAT Peripheral IV Care [RC] . DIRECTED Peripheral IV Insertion Adult [OM.PC] Stat 09/07/19 13:11 INR,PT,PROTHROMBIN TIME [COAG] Stat PTT,PARTIAL THROMBOPLSTIN TIME [COAG] Stat
[2019-09-07 13:38] LABS: ANION GAP 17.3 mEq/L (7-13); CHLORIDE,CL 94 mmol/L (98-107); SODIUM,NA 132 mmol/L (136-145)
[2019-09-07 13:49] LABS: PTT,PARTIAL THROMBOPLSTIN TIME 22.6 SEC (22.0-34.0)
--- NOTE | 2019-09-07 14:00 | CR ---
EXAMINATION: Chest 1V Frontal SEX: Female AGE: 49 years CLINICAL HISTORY: 49-year-old female with CHEST PAIN who was reported on abnormal 02 June 2018 exam to have "pulmonary vascular congestion, [place] B lines and bibasilar pleural effusions (but normal cardiac silhouette)". Interpretation: (Upright AP portable chest) Negative exam. 1. Normal cardiac silhouette and pulmonary vascularity i.e. no pulmonary vascular congestion, cephalization of flow, alveolar edema or dependent effusion. No interstitial curly B lines. External awake overnight monitor leads. 2. No new lung mass, hilar lymphadenopathy or focal lobar pneumonia. No atelectasis/collapse. 3. No pneumothorax or pneumomediastinum. Midline tracheobronchial airway unremarkable. 4. No foreign bodies. AP bony thorax unremarkable.
[2019-09-07] MEDS ORDERED: Sucralfate 1 GM Tab PO ONE ×2 (14:04→14:15)
[2019-09-07] MEDS ORDERED: HYDROmorphone 1 MG/ML Syringe IVPUSH ONE (14:05)
== END 2019-09-07 14:26 | disposition home or self-care (01) ==
LOC: DL.ED 12:43
DX: R10.13 Epigastric pain (principal); R07.89 Other chest pain; R11.2 Nausea with vomiting, unspecified; K21.9 Gastro-esophageal reflux disease without esophagitis; F17.210 Nicotine dependence, cigarettes, uncomplicated; Z79.899 Other long term (current) drug therapy
CPT/HCPCS: 36415; 71045; 80053; 80305; 80307; 81001; 82150; 82271; 83690; 83735; 84484; 85025; 85610; 85730; 93005; 96361; 96374; 96375; 96376; 99284; A9270; C9113; J1170; J2405; J7120